=== PATIENT | female | born 1945 | race Caucasian/White ===

== ENCOUNTER 2018-11-05 09:36 | Inpatient (IN) | payer MEDICARE, OTHER, SELFPAY ==
[2018-10-22 08:40] VITALS: BMI 19.1
[2018-11-05] VITALS (20 sets, daily range): BP systolic 94–137; BP diastolic 35–90; PULSE 66–77; RESP 10–17; TEMP 35.9–37.1; O2SAT 92–99; BMI 17.6
--- NOTE | 2018-11-05 | DI.RAD.S_ITS ---
PROCEDURE: XR CERVICAL SPINE 2V OR 3V INDICATIONS: ACDF TECHNIQUE: 2 view(s) of the cervical spine were acquired. COMPARISON: None. FINDINGS: 2 spot fluoroscopic intraoperative images demonstrating C4-C7 ACDF with interbody cage grafts. There is expected intraoperative alignment. Hardware appears intact. Dictated by: Manuel Baird M.D. on 11/05/2018 at 16:33 Approved by: Manuel Baird M.D. on 11/05/2018 at 16:34
--- NOTE | 2018-11-05 12:36 | PM.PREOP ---
Pre-operative Note Interval Note History & Physical reviewed/Exam performed by Physician: Yes Changes to H&P: No
[2018-11-05] MEDS: CEFAZOLIN 1 GM VIAL IV (13:26)
--- NOTE | 2018-11-05 14:26 | SUR.OPER ---
Supine, head on gel donut. Arms padded with gel pads, tucked at sides, towel roll under shoulders. Safety belt at thigh. Legs uncrossed.
[2018-11-05] MEDS: LACTATED RINGERS 1,000 ML 42 ML IV ×2 (14:45→16:40)
--- NOTE | 2018-11-05 16:26 | P.OP_ITS ---
Operative Date/Time/Diagnoses Date of procedure: 11/05/18 Time of procedure: 12:20 Pre-op diagnosis: 1. C4-5, C5-6, C6-7 spinal stenosis 2. C4-5, C5-6, C6-7 spondylosis with radiculopathy Post-op diagnosis: same Procedure & Clinicians Procedure: 1. C4-5 C5-6 C6-7 anterior cervical diskectomy and fusion 2. C4-5 C5-6 C6-7 anterior interbody cage placement 3. C4-5 C5-6 C6-7 anterior instrumentation with plate and screw placement in C4-C5-C6 and C7 vertebrae 4. Utilization of microsurgical technique and operating microscope Same procedure as scheduled: Yes Indications: Patient has been having chronic neck pain and worsening cervical radiculopathy. Patient failed multiple conservative management with worsening pain weakness and numbness in her upper extremity. Patient has been having difficulty performing activity of daily living. After discussing risks benefits of treatment options, patient elected proceed with surgery. Surgeon: Frantz Pang [employer] Set Up Technician: Flory Corey'Brien Click Yes if Unassisted: No Anesthesia Type: General Operative Notes Closure Type: primary Specimen(s): none sent Prosthetic devices, grafts, tissues, transplants, or devices: Globus extend plate, PEEK cages Applied: catheter and drain(s) (Flat MADDIE drain) Estimated Blood Loss (mL): 50 Blood products transfused: none Procedure in detail: Patient was seen in the preoperative area. Risks and benefits of the surgery was discussed with the patient. Operative consent was obtained and placed in the chart. Patient was then taken to the operative room. Prophylactic antibiotic was given less than 0.5 hr prior to skin incision. General anesthesia was administered. Patient was placed into a supine position on her radiolucent table. Bilateral shoulders were taped down to allow proper C- arm imaging. Anterior cervical area was prepped and draped in a sterile fashion. Time-out was performed at this time. Using lateral C-arm imaging, the level between C4 and C7 was identified and marked on patient's neck. A oblique incision from midline towards medial border of sternocleidomastoid muscle was made. The platysma muscle was incised in line with skin incision. Metzenbaum scissor was used to develop the plane between the medial border of sternocleidomastoid d and the strap muscles medially. The carotid sheath and its contents were identified and protected behind the hand- held retractor during the entire case. The plane between the carotid sheath and strap muscles was developed with Metzenbaum scissors. Dissection was made down to the level of the anterior cervical fascia. Longus colli muscle was incised on the anterior aspect of vertebral bodies bilaterally from C4-C7. Spinal needle was placed into the C4-5 disc space and confirmed with lateral C-arm imaging. Using microsurgical technique and operative microscope, anterior cervical diskectomy was performed at C4-5 C5-6 and C6-7 level. This was done by removing the disc material, removing the anterior and posterior osteophytes posterior longitudinal ligaments along with performing bilateral foraminotomies at all 3 levels. Patient was found to have severe central and foraminal stenosis at all 3 levels. Patient's stenosis was fully decompressed after decompression was completed. After the diskectomy was completed, 3 anterior interbody cages were obtained. The cages were packed with globus via cell bone grafting material. One cage each along with the bone grafting material was then packed into the interbody spaces from C4-C7 with one cage into each interbody level. After the cages were placed, the anterior cervical plate was stabilized to the C4-C7 vertebrae using 2 screws at each each level. Total 8 screws were placed. After confirming placement of the hardware with AP and lateral C-arm imaging, the screws were locked into the plate using the locking mechanism and torque limiting screwdriver. After the hardware was placed and confirmed with AP and lateral C-arm imaging, the wound was irrigated with sterile normal saline. After the hardware was placed and confirmed with AP and lateral C-arm imaging, the retractor was removed and the wound was inspected. There is a small venous bleeder adjacent to the internal jugular vein as one of its tributaries avulsed during the process of retraction. After cauterizing using the bipolar there was still small amount of venous bleeding. Small vascular clips was used to clip the small venous bleeder and the bleeding stopped completely at this location. The wound was inspected. No other in bleeder was identified. A flat MADDIE drain was placed deep to the platysma muscle. The drain was secured to the skin using 3 nylon suture. The platysma muscle and the subcutaneous tissue was closed with 2-0 Vicryl. The skin was closed with 4-0 Monocryl and Steri-Strips. Patient tolerated the procedure well. Patient was transferred recovery room in stable condition. There were no complications. Complications: none Condition: stable Disposition: PACU Plan for aftercare: Admit to inpatient hospital
[2018-11-05] MEDS: fentaNYL 100 MCG/2 ML INJ 50 MCG IV ×4 (16:40→17:18)
--- NOTE | 2018-11-05 16:54 | SUR.PHASEI ---
assumed care of pt at this time. pt sitting up in bed, alert and response to rn. Drsg to neck observed to be c/d/i. Drain in place and draining red blood. soft collar in place.
[2018-11-05] MEDS: HYDROMORPHONE 2 MG INJ 0.25 MG IV ×8 (16:56→17:36)
[2018-11-05] MEDS: LORazepam 2 MG/ML SYRINGE 0.5 MG IV (17:14)
--- NOTE | 2018-11-05 17:14 | SUR.PHASEI ---
Report given to Sherine Simon RN at this time. Pt resting in bed with eyes closed, easily arousable to voice when spoken to. pt vss.
--- NOTE | 2018-11-05 17:15 | SUR.PHASEI ---
transferred care of pt to Sherine Simno RN at this time.
--- NOTE | 2018-11-05 17:44 | SUR.PHASEI ---
attempting to call report to the floor but they are unable to take a patient because of an ER admit. Will await thier call.
[2018-11-05] MEDS: SODIUM CHLORIDE 0.9% 1,000 ML 100 ML IV (18:48)
--- NOTE | 2018-11-05 18:54 | PC.NURSE ---
1805 - Patient brought up from PACU in bed by nursing staff. Patient sleepy, but awakens easily when spoken to. Able to move all extremities. Dressing to neck C/D/I and MADDIE in place draining sanguinous fluid. Oriented to room and call light, call light within reach. Bed alarm on.
[2018-11-05] MEDS: OXYCODONE IR 5 MG TABLET 10 MG PO ×2 (20:15→23:37)
[2018-11-05] MEDS: SIMVASTATIN 20 MG TABLET PO (20:16)
[2018-11-05] MEDS: GABAPENTIN 300 MG CAPSULE PO (20:16)
[2018-11-05] MEDS: CEFAZOLIN 1 GM/50 ML FROZ.PIGGY IV (20:16)
[2018-11-05] MEDS: SENNOSIDES 8.6 MG TABLET 17.2 MG PO (20:16)
[2018-11-05] MEDS: DOCUSATE 100 MG CAPSULE PO (20:16)
[2018-11-06] VITALS (7 sets, daily range): BP systolic 116–162; BP diastolic 57–83; PULSE 66–89; RESP 16–20; TEMP 36.6–38.4; O2SAT 92–99
[2018-11-06] MEDS: OXYCODONE IR 5 MG TABLET 10 MG PO ×2 (02:39→05:37)
[2018-11-06] MEDS: CEFAZOLIN 1 GM/50 ML FROZ.PIGGY IV (04:29)
[2018-11-06] MEDS: LEVOTHYROXINE 100 MCG TABLET 200 MCG PO (05:38)
[2018-11-06] MEDS: LEVOTHYROXINE 25 MCG TABLET PO (05:39)
[2018-11-06] MEDS: SODIUM CHLORIDE 0.9% 1,000 ML 100 ML IV (05:39)
[2018-11-06 06:20] LABS: Hematocrit 34.5 % (36-46); Hemoglobin 11.6 g/dL (12.0-16.0)
[2018-11-06] MEDS: HYDROMORPHONE 0.5 MG INJ IV (08:19)
--- NOTE | 2018-11-06 09:36 | PM.PNPO.1 ---
Subjective Date Patient Seen: 11/06/18 Time Patient Seen: 09:36 Interval history: Patient is 73 year old female who is POD#1 s/p C4-5 C5-6 C6-7 anterior cervical diskectomy and fusion with Dr. Pang. She has had issues with pain control and currently is complaining of headache, pain in the posterior neck that radiates to bilateral arms, and incisional pain. Pain is in the same distribution as preop. Some sore throat, she has been tolerating liquids and soft foods. She has not yet mobilized with PT. Denies any changes in sensation. No chest pain or shortness of breath. Exam Vital Signs (past 8 hours): - 11/06/18 05:59 11/06/18 08:00 Temperature 97.8 F 98.4 F Pulse Rate 70 66 Respiratory Rate 16 20 Blood Pressure 162/71 H 160/74 H Pulse Oximetry 99 99 Oxygen Delivery Method Room Air Oxygen Flow Rate 0 Narrative Exam Narrative: Patient resting in bed with moderate discomfort, in no acute distress. Alert and oriented. Dressing in place is clean, dry and intact. MADDIE drain in place reading 25cc. Sensation intact in distal extremity. Travel Rn Or strength is 5/5 and equal. 2+ radial pulses. Calves are soft and compressible bilaterally. Objective Labs Result Diagrams: 11/06/18 05:49 Labs: Laboratory Results - last 24 hr 11/06/18 05:49 Hgb 11.6 L Hct 34.5 L Assessment & Plan Post-op Postoperative Procedures Operation Date: 11/05/18 12:15 Actual Procedures Side Surgeon p C4-5,C5-6,C6-7 ACDF w/Anterior Instru. Frantz Pang MD Medications adjusted today for pain control. Discontinue IV Dilaudid and oxycodone as it is not providing adequate relief and transition to oral Dilaudid for severe pain. Continue Vistaril, Tylenol and Gabapentin. Mobilize with PT. Possible discharge to home tomorrow pending better pain control.
--- NOTE | 2018-11-06 09:43 | P.PN_ITS ---
Subjective Date Patient Seen: 11/06/18 Time Patient Seen: 09:36 Interval history: Patient is 73 year old female who is POD#1 s/p C4-5 C5-6 C6-7 anterior cervical diskectomy and fusion with Dr. Pang. She has had issues with pain control and currently is complaining of headache, pain in the posterior neck that radiates to bilateral arms, and incisional pain. Pain is in the same distribution as preop. Some sore throat, she has been tolerating liquids and soft foods. She has not yet mobilized with PT. Denies any changes in sensation. No chest pain or shortness of breath. Exam Vital Signs (past 8 hours): - 11/06/18 05:59 11/06/18 08:00 Temperature 97.8 F 98.4 F Pulse Rate 70 66 Respiratory Rate 16 20 Blood Pressure 162/71 H 160/74 H Pulse Oximetry 99 99 Oxygen Delivery Method Room Air Oxygen Flow Rate 0 Narrative Exam Narrative: Patient resting in bed with moderate discomfort, in no acute dis tress. Alert and oriented. Dressing in place is clean, dry and intact. MADDIE drain in place reading 25cc. Sensation intact in distal extremity. Three Dimensional Map Modeler strength is 5/5 and equal. 2+ radial pulses. Calves are soft and compressible bilaterally. Objective Labs Result Diagrams: 11/06/18 05:49 Labs: Laboratory Results - last 24 hr 11/06/18 05:49 Hgb 11.6 L Hct 34.5 L Assessment & Plan Post-op Postoperative Procedures Operation Date: 11/05/18 12:15 Actual Procedures Side Surgeon p C4-5,C5-6,C6-7 ACDF w/Anterior Instru. Frantz Pang MD Medications adjusted today for pain control. Discontinue IV Dilaudid and oxycodone as it is not providing adequate relief and transition to oral Dilaudid for severe pain. Continue Vistaril, Tylenol and Gabapentin. Mobilize with PT. Possible discharge to home tomorrow pending better pain control.
[2018-11-06] MEDS: HYDROMORPHONE 2 MG TABLET PO (09:56)
[2018-11-06] MEDS: MULTIVITAMIN 1 TABLET 1 TAB PO (09:57)
[2018-11-06] MEDS: hydrOXYzine pamoate 25 MG CAPSULE PO ×3 (09:57→21:53)
[2018-11-06] MEDS: DOCUSATE 100 MG CAPSULE PO ×2 (09:57→21:53)
[2018-11-06] MEDS: GABAPENTIN 300 MG CAPSULE PO ×2 (09:57→21:53)
[2018-11-06] MEDS: SERTRALINE 50 MG TABLET 100 MG PO (09:57)
--- NOTE | 2018-11-06 11:17 | ST.IPSCREEN ---
Pt seen for voice and swallowing screening following ACDF surgery. Pt reported mild hoarseness and good swallowing. No obvious cough/ choke observed with water via straw. pt reported that she ate her breakfast without difficulty. Literature provided to pt re voice/swallow following ACDF. non-billable visit
--- NOTE | 2018-11-06 11:17 | CM.DANOTE ---
DCP/Assessment: Reviewed chart. Patient is a 73yr old female admitted to [facility] for spine surgery performed by Dr. Pang on 11-05-18. Primary payor is 1)Medicare 2)[email or web address]. PCP is Joanne Cho in [facility] Met with patient explained CM/SW role. Patient alert and oriented, sitting in recliner at time of visit. Patient reports that she hopes to go home when medically stable. Patient reports that she has been in a lot of pain today. At this time d/c date unknown. Patient being followed by therapy. Patient reports having 15 [address] residence. Patient plans to borrow FWW at [facility] in [place]. Patient does not anticipate any d/c planing needs. P: Home when stable. Patient reports having family support. LINDSEY Mejia Discharge Planning/Care Management CM Discharge Assessment Start: 11/06/18 11:14 Freq: Status: Active Protocol: Document 11/06/18 11:14 KJS (Rec: 11/06/18 11:17 KJS [id number]) Discharge Planning Assessment Assigned Triple Air Valve Tester LINDSEY Mejia Contact Information Chalo Brown (spouse) Advance Directives? Yes: Unsure of whereabouts Advance Directives on File No History Provided By Patient Medical Record Prior Living Arrangements House Household Members spouse Type of transporation used prior to Drives own vehicle admit Independent with ADL's Yes Is patient alert and oriented? Yes Caregiver for Another No DME Already Rented / Owned FWW / Walker Comment Patient intends on borrowing FWW from [facility] in [place]. Barriers to Discharge No Discharge Plan Home Transportation Arrangement Family to provide transport Referrals Initiated None needed Whiteboard Updated in Patient Room with Yes name and ext. # of Triple Air Valve Tester Review Status In Process Next Review Type Continued Stay Review Pre-Anesthesia Assessment Start: 10/22/18 08:40 Freq: Status: Complete Protocol: Document 10/22/18 08:40 CAB (Rec: 10/22/18 09:24 CAB [id number]) Pre-Anesthesia Assessment Patient Also Known As Sommer (AKA) Patient Information Reviewed Via Phone Assessment Assessment Completed With Patient Diagnostic Results BMP/CMP CBC EKG Comment Outside labs/ECG scanned in Primary Care Provider Joanne Kay Seen Specialist in Last 12 Months Yes Specialist Seen Orthopedist Primary Language Azerbaijani Watermaster Required No Height 165.1 cm Weight 52.163 kg Body Mass Index (BMI) 19.1 Hearing Ability Normal Visual Assist Glasses Dentition Type Teeth, Natural Present Teeth, Missing Barriers to Learning None Hx Anesthesia Reactions No Hx Family Anesthesia Reaction No Hx Malignant Hyperthermia No Hx Blood Transfusions No Anesthesia Review Requested No Foreclosure Home Inspector No alcohol intake current alcohol intake frequency 0-2 drinks per day Smoking Status Current every day smoker Tobacco type cigarettes Smoking packs per day 1 Substance Use Type does not use Pain Present Pain Reported Musculoskeletal Symptoms Back Pain Limited Range of Motion Neck Pain Radiating Pain into Limb History of Falling (Recent or History of No ) Patient is completely paralyzed or No completely immobile Mental Status Oriented to own ability Is patient on oxygen? No Does patient have RODRIGUEZ/SOB No Hx Sleep Apnea No Currently Taking a Beta Juanjose No Can You Climb a Flight of Stairs Without Yes SOB Hx Chest Pain No Hx SOB No Hx Syncope or Dizziness No Anti-Coagulant Therapy No Has a Environmental Sustainability Manager No Cardiac Testing No Hx Pacemaker/ICD No Pacemaker Rep Required? No Cardiac Clearance Received Not Applicable Diet Type At Home Regular dysphagia No Urinary Catheter Present No Hx Urinary Self Catheterization No Diabetes No Patient No Lactating No Hx Drug Resistant Organism No Presence of External or Internal Medical No Devices Have you traveled outside the [facility] States in the last 30 days? Marital Status Lives With spouse Prior Living Arrangements House Number of Floors (Floors) Two Floors Support System Child/Children Spouse Does the Patient Have Assistance After Yes Surgery Patient Discharge Plan Description Return Home Comment Pt advised overnight length of stay per surgeon's office Feels Safe in Current Environment Yes Been Physically Hurt or Threatened By a No Person in Current Environment Do you have thoughts of harming yourself None or others? Are you currently considering suicide? No Do you have a plan to hurt yourself or No Plan others? Do You Have Any Spiritual Beliefs That No May Affect Your HC Choices? Do You Have Any Cultural Practices That No May Affect Your HC Choices? Spiritual Referral None Comment Worship Who Can We Speak to About Patient's Care Family, friends Identifying Code for Release of Patient Declines to issue Information Health Care Proxy/Next of Kin Chalo () Health Care Proxy Emergency Contact Name Mary (daughter) Emergency Contact Advance Directives? Yes: Unsure of whereabouts Advance Directives on File No Power of Flight Nurse No PAC Instructions Medications to take/avoid Nasal antibiotic No ETOH/petroleum product on skin DOS NPO Post-op transportation Pre-surgical wash Sensory aids Sturdy shoes/comfortable clothes Do not bring valuables and remove jewelry
--- NOTE | 2018-11-06 11:27 | PT.IIE ---
Current Diagnoses Other spondylosis with radiculopathy, cervical region (11/05/18) Spinal stenosis, cervical region (11/05/18) Surgery Performed Operation Date: 11/05/18 12:15 Actual Procedures p C4-5,C5-6,C6-7 ACDF w/Anterior Instru. - Frantz Pang MD Medical History (Last Updated 10/22/18 @ 09:15 by Yvonne Tovar RN) Allergic rhinitis (Acute) Cervical spinal stenosis (Acute) Depression (Acute) H/O: hysterectomy (Acute) HLD (hyperlipidemia) (Acute) Hypothyroid (Acute) Osteoarthritis (Acute) Osteopenia (Acute) Raynaud's disease (Acute) Seizures (Acute) Physical Therapy Inpatient Evaluation/Re-Eval M1 PT/OT-IP Prior Functional Status Start: 11/06/18 10:59 Freq: NEEDED Status: Active Protocol: Document 11/06/18 09:10 (Rec: 11/06/18 11:27 [email or web address]) Medical Review Prior Functional Status Medical History Reviewed Yes Diet/Fluid Consistency Regular Communication No deficits noted. Able to make needs knwon Mobility and Gait Pt is independent for overall mobility at home and community . But she does have difficulty bending over, lifting objects due to pain. Activities of Daily Living and IADL's Independent for ADLs and IADLs . Pt had difficult time making bed, laundry due to pain. Pt also drives Social History Household Members spouse Living Arrangements House Number of Floors (Floors) Two Floors Number of Stairs To Enter/Railing? 3 VANDANA to front with wide rails 1 step from garage to back door 14 steps to second floor with landing in between, B rails Home Environment Standard Height Toilet Walk in Shower Home Equipment Straight Cane Hand Held Shower Employment Status Retired Additional Social History Comment Pt lives with her who has a bad back and knees and use SPC for mobility. Pt's BR on 2 nd floor and would like to cont to keep it that way since she doesnt want to sleep on the couch downstairs. M2 PT-IP Current Condition Start: 11/06/18 10:59 Freq: NEEDED Status: Active Protocol: Document 11/06/18 09:10 (Rec: 11/06/18 11:27 [email or web address]) Physical Therapy Current Condition Current Condition Evaluation Date 11/06/18 Treatment Diagnosis C4-C7 fusion, ant diskectomy, impaired gait and activity tolerance Onset Date 11/05/18 Precautions Cervical Spine Precautions Soft Collar for Comfort Rigid Collar No Heavy Lifting Log Roll Weight Bearing Status Weight Bearing Status Weight Bear as Tolerated M3 PT-IP Subjective Start: 11/06/18 10:59 Freq: NEEDED Status: Active Protocol: Document 11/06/18 09:10 (Rec: 11/06/18 11:27 [email or web address]) Subjective Physical Therapy Visit Type Type Initial Evaluation Visit Start Time 09:10 Visit Stop Time 09:40 Total Visit Minutes 30 Notes Co-tx with OT. BP before mobility: 160/76, pt states she is nervous. Number of STAFF PHYSICIAN Visits 0 Physical Therapy Visit Comments Patient Comments I feel kind of nervous and weak Patient Goals To return home with her Therapy Pain Assessment Pain When Pain Assessed At Rest Pain Present Pain Present Pain Reported Location Posterior Neck Intensity 3 Scale Used Numeric (1 - 10) Description Acute Pain Management Techniques Modification of Treatment Timing of Activity with Medications M4 PT-IP Mobility and Gait Start: 11/06/18 10:59 Freq: NEEDED Status: Active Protocol: Document 11/06/18 09:10 (Rec: 11/06/18 11:27 [email or web address]) PT-Bed Mobility Assessment Rolling Type of Rolling Log Rolling Roll to Right Level of Assist Contact Guard Assistance Supine to Sit Supine to Sit Contact Guard Assistance Scooting Scooting to Edge of Bed Contact Guard Assistance PT-Transfer Assessment Sit to and From Stand Sit to and from Stand Contact Guard Assistance Use of Upper Extremities Equipment Transfer Assistive Device Gait Belt Front Wheeled Walker Orthotic/Prosthetic Devices or Brace: Yes Transfers Transfer Destination Bed Chair Transfer Technique Stand Pivot Transfer Ability Level of Assist Contact Guard Assistance Comments Mobility Comments Pt able to log roll and and sit up on R EOB. STS from EOB with FWW CGA. Pt was slightly unsteady excessive sway. She mostly hold on to counter for self care. She understands her post op precautions and able to maintain them by using hip hinge pattern for transfers. Pt also showed increased time for turns with shuffling steps . Gait Assessment Gait Gait Assistance Required: Contact Guard Assist Distance (Feet) 70 Able to Maintain Weight Bearing Status Yes During Gait Assistive Devices Assistive Device None Gait Belt Front Wheeled Walker Orthotic/Prosthetic Devices or Brace: Yes Gait Deviations General Gait Pattern Ataxic Decreased Stride Length Decreased Feet Clearance Narrow Based Gait Factors Limiting Gait Function Factors Limiting Gait Function Abnormal Tonal Influences Decreased Activity Tolerance Decreased Sensation Decreased Strength Limited Range of Motion Pain Poor Balance Comments Gait Comments Pt amb from EOB to sink counter, then to hallway and returned back to chair with CGA and FWW. Attempted to amb without FWW for 10 feet but appeared unsteady with uneven steps. Pt states she feels wobbly and weak without FWW. Pt also took longer time for turns with shuffling steps. Stair Climbing Assessment Comments Stair Climbing Comments did not attempt due to fatigue PT-Balance Assessment Sitting Balance and Reactions Static Sitting Balance Ability Normal Dynamic Sitting Balance Ability Normal Standing Balance and Reactions Static Standing Balance Ability Good Dynamic Standing Balance Ability Good Device Used FWW M5 PT-IP Objective Assessments Start: 11/06/18 10:59 Freq: NEEDED Status: Active Protocol: Document 11/06/18 09:10 (Rec: 11/06/18 11:27 [email or web address]) Orientation Orientation/Cognition Level of Alertness Alert Orientation Name Age Birthday Month Date Year Day of Week Place Situation Language Function Ability No Deficits Noted Safety Awareness Understands Safety Issues Memory Description No Deficits Noted Gross Range of Motion Upper Extremity ROM Assessment Within Functional Limits Lower Extremity ROM Assessment Within Functional Limits Strength Upper Extremity Strength Assessment Bilaterally Impaired Shoulder 3+ Elbow 3+ Wrist 3+ Hand 3+ Lower Extremity Strength Assessment Bilaterally Impaired Hip 4 Knee 4 Ankle 4 Comments Strength Comments Pt overall appears a bit fragile with limited UE strength but she states she feels normal. Coordination Assessment Gross Coordination Gross Coordination WNL Assessment Finger to Nose Test Normal Performance Pronation/Supination Test Normal Performance Sensation Assessment Sensation Gross Sensation Right UE Impaired Left UE Impaired Light Touch Impaired Proprioception (Position) Impaired Sensation Description Numbness Comments Sensation Comments c/o numbness/ decreased sensitivity with touch on dorsal aspect of forearms. Muscle Tone Muscle Tone WNL Yes M6 PT-IP Treatment Start: 11/06/18 10:59 Freq: NEEDED Status: Active Protocol: Document 11/06/18 09:10 (Rec: 11/06/18 11:27 [email or web address]) Physical Therapy Treatment Education Education Provided Precautions Weight Bearing Status Post-Op Packet Safety M7 PT-IP Assessment and Plan Start: 11/06/18 10:59 Freq: NEEDED Status: Active Protocol: Document 11/06/18 09:10 (Rec: 11/06/18 11:27 [email or web address]) PT Summary Assessment and Plan Potential Rehabilitation Potential Good Status of Condition at Evaluation Stable Summary Impairments Pain ROM Strength Balance Bed Mobility Transfers Gait Activity Tolerance Assessment Summary Pt is low complexity who is POD #2 s/p C4-5 C5-6 C6-7 anterior cervical diskectomy and fusion. Pt appears weak and fragile upon assessment, with relatively high BP 160/76 before mobility. Pt did state she was quite nervous since the surgery. Pt c/o numbness/ decreased sensitivity with touch on dorsal aspect of forearms, but overall WFL ROM. Pt also showed decreased balance and required to use FWW for mobility. This might due to medication and a day of being bed bound. However, pt' s BP reached 130/67 after mobility and she feels good afterwards. Pt currently is not safe to go home yet, especially she has 14 steps to access her bedroom. But she will return to home with assistance most likely depends on her progress. Home health might be an option as well to improve her overall mobility. Goals Bed Mobility Goal Independent Transfer Goal Independent Cane Front Wheeled Walker Gait Goal Independent Cane Front Wheel Walker Gait Distance 200 Other Goals climb 15 steps with B rails Days to Meet Goals 5 Frequency of Treatment Frequency Of Treatment Twice a Day Treatment Plan Physical Therapy Treatment Plan Bed Mobility Training Transfer Training Gait Training Therapeutic Exercise Balance Retraining Post Op Education Discharge Planning Hot or Cold Pack Other Recommendations and Next Treatment log roll, bed mob, transfer Focus and gait training as carina with LRAD stair climbing as carina Recommendations To Nursing Amount of Assist Needed 1 Person Assist Discharge Recommendations PT Discharge Recommendations Home with Assistance Home Health Other Discharge Recommendations Pt currently is not safe to go home yet, especially she has 14 steps to access her bedroom . But she will return to home with assistance most likely depends on her progress . Home health might be an option as well to improve her overall mobility.
--- NOTE | 2018-11-06 12:58 | OT.IP.EVAL ---
Current Diagnoses Other spondylosis with radiculopathy, cervical region (11/05/18) Spinal stenosis, cervical region (11/05/18) Surgery Performed Operation Date: 11/05/18 12:15 Actual Procedures p C4-5,C5-6,C6-7 ACDF w/Anterior Instru. - Frantz Pang MD Past Medical History (Last Updated 10/22/18 @ 09:15 by Yvonne Tovar RN) Allergic rhinitis (Acute) Cervical spinal stenosis (Acute) Depression (Acute) H/O: hysterectomy (Acute) HLD (hyperlipidemia) (Acute) Hypothyroid (Acute) Osteoarthritis (Acute) Osteopenia (Acute) Raynaud's disease (Acute) Seizures (Acute) Occupational Therapy Inpatient Evaluation/Re-Eval M1 PT/OT-IP Prior Functional Status Start: 11/06/18 11:58 Freq: NEEDED Status: Active Protocol: Document 11/06/18 08:35 [facility] (Rec: 11/06/18 12:58 [facility] [email or web address]) Medical Review Prior Functional Status Medical History Reviewed Yes Diet/Fluid Consistency Regular Communication No deficits noted. Able to make needs known. Mobility and Gait Pt is independent for overall mobility at home and community . But she does have difficulty bending over, lifting objects due to pain. Activities of Daily Living and IADL's Independent for ADLs and IADLs . Pt had difficult time making bed, laundry due to pain. Pt also drives Social History Household Members spouse Living Arrangements House Number of Floors (Floors) Two Floors Number of Stairs To Enter/Railing? 3 VANDANA to front with wide rails 1 step from garage to back door 14 steps to second floor with landing in between, B rails Home Environment Standard Height Toilet Walk in Shower Home Equipment Straight Cane Hand Held Shower Employment Status Retired Additional Social History Comment Pt lives with her who has a bad back and knees and use SPC for mobility. Pt's BR on 2 nd floor and would like to cont to keep it that way since she doesnt want to sleep on the couch downstairs. in addition, pt states that unable to lift or provide physical assist. M2 OT-IP Current Condition Start: 11/06/18 11:58 Freq: Status: Active Protocol: Document 11/06/18 08:35 [facility] (Rec: 11/06/18 12:58 [facility] [email or web address]) Occupational Therapy Current Condition Current Condition Evaluation Date 11/06/18 Treatment Diagnosis Cervical Stenosis Diagnosis Onset Date 11/05/18 Post Operative Precautions Cervical Spine Precautions Soft Collar for Comfort No Heavy Lifting Log Roll M3 OT- IP Subjective and Pain Start: 11/06/18 11:58 Freq: Status: Active Protocol: Document 11/06/18 08:35 [facility] (Rec: 11/06/18 12:58 [facility] [email or web address]) OT- Subjective Occupational Therapy Visit Type Type Initial Evaluation Visit Start Time 08:35 Visit Stop Time 08:50 Notes Also seen from 915 to 945 for mobility needs with PT. Occupational Therapy Visit Comments Patient Comments Pt agreeable to get up after breakfast. Patient/Caregiver Goals To go home. OT Pain Assessment Pain When Pain Assessed At Rest Pain Present Pain Present Pain Reported Location Posterior Neck Intensity 5 Scale Used Numeric (1 - 10) M4 OT- IP ADL's Start: 11/06/18 11:58 Freq: Status: Active Protocol: Document 11/06/18 08:35 [facility] (Rec: 11/06/18 12:58 [facility] [email or web address]) OT LAC-Cged-Sozpgiy General Evaluation Self-Feeding Ability Independent Comments OT Self-Feeding Comments Educated pt to eat softer food , take smaller bites and sips, and be sure to sit upright at 90 degrees. OT ADL-Grooming General Evaluation Grooming Ability Standby Assistance Areas Needing Assistance Retrieving/Set-up of Grooming Items Comments OT Grooming Comments Pt able to stand with FWW in order to do grooming needs. Cues to bend at hips or spit into a cup. OT ADL-Oral Care General Eval Oral Care Ability Independent OT ADL-Dressing General Eval Lower Body Dressing Ability Standby Assistance Comments OT Dressing Comments Pt ableto lauren socks while bringing up feet in bed. Pt staets has slip on shoes at home. OT ADL-Toileting Comments OT Toileting Comments Pt still has a catheter in. M5 OT- IP IADL's Start: 11/06/18 11:58 Freq: Status: Active Protocol: Document 11/06/18 08:35 [facility] (Rec: 11/06/18 12:58 [facility] [email or web address]) OT-Instrumental Activities of Daily Living Meal Preparation Meal Preparation Comments to provide assist. Tool Trouble Shooter Tool Trouble Shooter Comments to provide assist. M6 OT- IP Functional Cognition Start: 11/06/18 11:58 Freq: Status: Active Protocol: Document 11/06/18 08:35 [facility] (Rec: 11/06/18 12:58 [facility] [email or web address]) Cognitive Factors Limiting Selfcare Function Cognitive Ability Level of Alertness Alert Patient Orientation Name Place Situation Attention Span Ability Capable of Focused Attention Capable of Sustained Attention Ability to Follow Commands Able to Follow Multi-Step Commands Memory Description No Deficits Noted Safety Awareness No Deficits Noted Cognitive Comments Cognitive Assessment Comments Pt's cognition appears intact at this time. OT- Vision and Hearing OT- Hearing Assessment OT- Hearing Assessment WFL M7 OT- IP Mobility and Balance Start: 11/06/18 11:58 Freq: Status: Active Protocol: Document 11/06/18 08:35 [facility] (Rec: 11/06/18 12:58 [facility] [email or web address]) OT- Bed Mobility Assessment Rolling Type of Rolling Roll to Right Supine to Sit Supine to Sit Assist Standby Assistance Scooting Scooting to Edge of Bed Standby Assistance OT-Transfer Assessment Sit to and From Stand Sit to and from Stand Contact Guard Assistance Transfers Transfer Ability Contact Guard Assistance 1 Person Assistance Technique Transfer Destination Bed Chair Transfer Technique Stand Step Pivot Devices Transfer Assistive Devices None Gait Belt Front Wheeled Walker Comments Mobility Comments At this time pt is more steady with use of FWW and CGA. Recommended pt may need FWW, PT to help pt determine . OT- Balance Assessment Sitting Balance and Reactions Static Sitting Balance Ability Normal Dynamic Sitting Balance Ability Good Standing Balance and Reactions Static Standing Balance Ability Good M8 OT- IP Objective Assessments Start: 11/06/18 11:58 Freq: Status: Active Protocol: Document 11/06/18 08:35 [facility] (Rec: 11/06/18 12:58 [facility] [email or web address]) OT Gross Range of Motion Upper Extremity Range of Motion Assessment Within Functional Limits OT Strength Comments Strength Comments BUE 3+/5 OT Sensation Assessment Comments Summary Comments Decreased sensation in forearms. M9 OT- IP Assessment and Plan Start: 11/06/18 11:58 Freq: Status: Active Protocol: Document 11/06/18 08:35 [facility] (Rec: 11/06/18 12:58 [facility] [email or web address]) OT Summary Assessment and Plan Potential Rehabilitation Potential Good Analytic Complexity at Evaluation Low Summary OT Impairments Pain Functional Mobility Dressing Toileting Bathing Toilet Transfers Shower Transfers Progress Towards Goals Slow Progress due to Pain Slow Progress due to Activity Tolerance Assessment Summary Pt low complexity and main barriers prior to going home are steps, pain , and now needing FWW for mobility. Pending pt's progress and family training home with assist. Goals Grooming Goal Independent Dressing Goal Independent Toileting Goal Independent Bathing Goal Standby Assistance Toilet Transfer Goal Independent Shower Transfer Goal Standby Assistance Patient/Caregiver Education Goal Caregiver Independent Assisting Patient Days to Meet Goals 3 Frequency of Treatment Frequency Of Treatment Once a Day Treatment Plan OT Treatment Plan ADL Training Functional Mobility Patient/Family Education Discharge Planning Other Treatment Recommendations and Next Shower, caregiver training Treatment Focus Discharge Recommendations OT Discharge Recommendations Home with Assistance Home Equipment Needs Shower chair, FWW
[2018-11-06] MEDS: HYDROMORPHONE 2 MG TABLET 4 MG PO ×3 (13:14→22:57)
--- NOTE | 2018-11-06 13:25 | PC.NURSE ---
Addendum entered by Marge Anderson R.N. 11/06/18 14:34: neck dressing removed for saturated bloody drainage on gauze. Old MADDIE site active drainage, pressure held for a dew minutes and gauze pressure dressing placed with Gauze and tegaderm prior to area being cleansed. Pt has had soft collar on all shift, no further skin issues. Dilaudid po prn effective, pain increased to 6-7/10 after PT session. Original Note: Day Shift- Dilaudid IV prn given at 0820 for 10/10 pain from neck radiating to a headache and to bilateral shoulders. Pt very teary and unable to get comfortable. Soft collar in place. Anterior neck dressing CDI with MADDIE in place on bulb suction with sang fluid. Spoke with RHIANNON Louise regarding pain regime not effective, orders changed from PRN Oxycodone to Dilaudid PO. Dilaudid 2mg pn prn given at 0955, pain increasing at 1200. With next dose will try 4mg, pt agreeable. Spoke with Dr. Pang at 1115, plan to remove MADDIE drain and call him back with update. Aware of pt spending one more night. Neck dressing removed as MADDIE under the same dressing. one suture removed. MADDIE removed without difficulty. Neck incision steri-strips CDI. Area cleansed with NS. Gauze and tegaderm dressing applied. Pt tolerated fair. Medial neck area puffy edema. Pt tolerating soft foods such as on a full liquid diet. Takes small pills whole with water without difficulty. Dr. Pang called at 1220 and given update regarding removal of MADDIE drain and neck swelling noted.
--- NOTE | 2018-11-06 14:29 | PT.IPTN ---
Current Diagnoses Other spondylosis with radiculopathy, cervical region (11/05/18) Spinal stenosis, cervical region (11/05/18) Surgery Performed Operation Date: 11/05/18 12:15 Actual Procedures p C4-5,C5-6,C6-7 ACDF w/Anterior Instru. - Frantz Pang MD Physical Therapy Treatment Note M2 PT-IP Current Condition Start: 11/06/18 10:59 Freq: NEEDED Status: Active Protocol: Document 11/06/18 09:10 (Rec: 11/06/18 11:27 [email or web address]) Physical Therapy Current Condition Current Condition Evaluation Date 11/06/18 Treatment Diagnosis C4-C7 fusion, ant diskectomy, impaired gait and activity tolerance Onset Date 11/05/18 Precautions Cervical Spine Precautions Soft Collar for Comfort Rigid Collar No Heavy Lifting Log Roll Weight Bearing Status Weight Bearing Status Weight Bear as Tolerated M3 PT-IP Subjective Start: 11/06/18 10:59 Freq: NEEDED Status: Active Protocol: Document 11/06/18 14:21 GGD (Rec: 11/06/18 14:29 GGD [id number]) Subjective Physical Therapy Visit Type Type Treatment Note Visit Start Time 13:55 Visit Stop Time 14:20 Total Visit Minutes 25 Number of RESIDENTIAL FINISH CARPENTER Visits 1 Physical Therapy Visit Comments Patient Comments Pt states she needs to use the bathroom. Therapy Pain Assessment Pain When Pain Assessed At Rest Pain Present Pain Present Pain Reported Location Posterior Neck Intensity 5 Scale Used Numeric (1 - 10) M4 PT-IP Mobility and Gait Start: 11/06/18 10:59 Freq: NEEDED Status: Active Protocol: Document 11/06/18 14:21 [email or web address] (Rec: 11/06/18 14:29 GGD [id number]) PT-Bed Mobility Assessment Rolling Type of Rolling Log Rolling Roll to Right Level of Assist Contact Guard Assistance Supine to Sit Supine to Sit Contact Guard Assistance Sit to Supine Sit to Supine Contact Guard Assistance Scooting Scooting to Edge of Bed Contact Guard Assistance PT-Transfer Assessment Sit to and From Stand Sit to and from Stand Contact Guard Assistance Use of Upper Extremities Equipment Transfer Assistive Device Gait Belt Front Wheeled Walker Orthotic/Prosthetic Devices or Brace: Yes Transfers Transfer Destination Bed Toilet Transfer Ability Level of Assist Contact Guard Assistance Gait Assessment Gait Gait Assistance Required: Contact Guard Assist Minimum Assistance 1 Person Assist Distance (Feet) 80 Able to Maintain Weight Bearing Status Yes During Gait Assistive Devices Assistive Device None Gait Belt Front Wheeled Walker Orthotic/Prosthetic Devices or Brace: Yes Gait Deviations General Gait Pattern Ataxic Decreased Stride Length Decreased Feet Clearance Narrow Based Gait Factors Limiting Gait Function Factors Limiting Gait Function Abnormal Tonal Influences Decreased Activity Tolerance Decreased Sensation Decreased Strength Limited Range of Motion Pain Poor Balance Comments Gait Comments Pt ambulated x 10 feet without AD with CGA and then 70 feet with FWW. Pt unsteady with gait without AD. M5 PT-IP Objective Assessments Start: 11/06/18 10:59 Freq: NEEDED Status: Active Protocol: Document 11/06/18 09:10 HH (Rec: 11/06/18 11:27 [email or web address]) Orientation Orientation/Cognition Level of Alertness Alert Orientation Name Age Birthday Month Date Year Day of Week Place Situation Language Function Ability No Deficits Noted Safety Awareness Understands Safety Issues Memory Description No Deficits Noted Gross Range of Motion Upper Extremity ROM Assessment Within Functional Limits Lower Extremity ROM Assessment Within Functional Limits Strength Upper Extremity Strength Assessment Bilaterally Impaired Shoulder 3+ Elbow 3+ Wrist 3+ Hand 3+ Lower Extremity Strength Assessment Bilaterally Impaired Hip 4 Knee 4 Ankle 4 Comments Strength Comments Pt overall appears a bit fragile with limited UE strength but she states she feels normal. Coordination Assessment Gross Coordination Gross Coordination WNL Assessment Finger to Nose Test Normal Performance Pronation/Supination Test Normal Performance Sensation Assessment Sensation Gross Sensation Right UE Impaired Left UE Impaired Light Touch Impaired Proprioception (Position) Impaired Sensation Description Numbness Comments Sensation Comments c/o numbness/ decreased sensitivity with touch on dorsal aspect of forearms. Muscle Tone Muscle Tone WNL Yes M6 PT-IP Treatment Start: 11/06/18 10:59 Freq: NEEDED Status: Active Protocol: Document 11/06/18 14:21 GGD (Rec: 11/06/18 14:29 GGD [id number]) Physical Therapy Treatment Education Education Provided Precautions Safety Brace Education Shravan Wheatley PT-IP Assessment and Plan Start: 11/06/18 10:59 Freq: NEEDED Status: Active Protocol: Document 11/06/18 14:21 GGD (Rec: 11/06/18 14:29 GGD [id number]) PT Summary Assessment and Plan Summary Assessment Summary Pt progressing slowly. She was able to progress gait distance. She had improved stability with gait with FWW. She need min A for sit to stand from lower toilet and CGA from bed. Pt needs to clear stair mobility before D/ C home. Frequency of Treatment Frequency Of Treatment Twice a Day Treatment Plan Physical Therapy Treatment Plan Bed Mobility Training Transfer Training Gait Training Therapeutic Exercise Balance Retraining Post Op Education Discharge Planning Hot or Cold Pack Other Recommendations and Next Treatment log roll, bed mob, transfer Focus and gait training as carina with LRAD stair climbing as carina Recommendations To Nursing Amount of Assist Needed 1 Person Assist Discharge Recommendations PT Discharge Recommendations Home with Assistance
[2018-11-06] MEDS: ACETAMINOPHEN 325 MG TABLET 650 MG PO ×2 (16:09→21:53)
[2018-11-06] MEDS: SIMVASTATIN 20 MG TABLET PO (21:53)
[2018-11-06] MEDS: CALCIUM CARB/VIT D3 500/200 TABLET 1 EACH PO (21:53)
[2018-11-06] MEDS: SENNOSIDES 8.6 MG TABLET 17.2 MG PO (21:53)
[2018-11-07] VITALS: BP 129/50; PULSE 91; RESP 16; TEMP 37.1; O2SAT 95
[2018-11-07] MEDS: HYDROMORPHONE 2 MG TABLET 4 MG PO ×2 (04:33→08:19)
[2018-11-07] MEDS: hydrOXYzine pamoate 25 MG CAPSULE PO (04:33)
[2018-11-07 04:45] VITALS: BP 154/70; PULSE 96; RESP 16; TEMP 37.7; O2SAT 96
[2018-11-07] MEDS: LEVOTHYROXINE 25 MCG TABLET PO (06:21)
[2018-11-07] MEDS: LEVOTHYROXINE 100 MCG TABLET 200 MCG PO (06:21)
[2018-11-07 07:22] VITALS: BP 157/74; PULSE 94; RESP 20; TEMP 36.9; O2SAT 96
[2018-11-07] MEDS: SERTRALINE 50 MG TABLET 100 MG PO (08:19)
[2018-11-07] MEDS: DOCUSATE 100 MG CAPSULE PO ×2 (08:19→20:03)
[2018-11-07] MEDS: GABAPENTIN 300 MG CAPSULE PO ×2 (08:19→20:03)
--- NOTE | 2018-11-07 09:14 | OT.IP.TRT ---
Current Diagnoses Other spondylosis with radiculopathy, cervical region (11/05/18) Spinal stenosis, cervical region (11/05/18) Surgery Performed Operation Date: 11/05/18 12:15 Actual Procedures p C4-5,C5-6,C6-7 ACDF w/Anterior Instru. - Frantz Pang MD Occupational Therapy Treatment Note M2 OT-IP Current Condition Start: 11/06/18 11:58 Freq: Status: Active Protocol: Document 11/06/18 08:35 [facility] (Rec: 11/06/18 12:58 [facility] [email or web address]) Occupational Therapy Current Condition Current Condition Evaluation Date 11/06/18 Treatment Diagnosis Cervical Stenosis Diagnosis Onset Date 11/05/18 Post Operative Precautions Cervical Spine Precautions Soft Collar for Comfort No Heavy Lifting Log Roll M3 OT- IP Subjective and Pain Start: 11/06/18 11:58 Freq: Status: Active Protocol: Document 11/07/18 09:01 [facility] (Rec: 11/07/18 09:14 [facility] [email or web address]) OT- Subjective Occupational Therapy Visit Type Type Treatment Note Visit Start Time 08:45 Visit Stop Time 09:00 Total Visit Minutes 15 Occupational Therapy Visit Comments Patient Comments Pt states still having some trouble swallowing even though eating softer foods, noticed that pt was coughing after drinking her water. Notifed nursing and both agreed to have MEAT PULLER screen. Able to see in notes that MEAT PULLER screened was done on 11/05 with no difficulties. scalloper MEAT PULLER to call nurse. Patient/Caregiver Goals Pt would like to go home. OT Pain Assessment Pain When Pain Assessed At Rest Pain Present Pain Present Pain Reported Location Posterior Neck Intensity 7 Scale Used Numeric (1 - 10) M4 OT- IP ADL's Start: 11/06/18 11:58 Freq: Status: Active Protocol: Document 11/07/18 09:01 [facility] (Rec: 11/07/18 09:14 [facility] [email or web address]) OT XNV-Aova-Mbrzlck General Evaluation Self-Feeding Ability Independent Comments OT Self-Feeding Comments Noted some coughing after swallowing. OT ADL-Grooming General Evaluation Grooming Ability Independent Comments OT Grooming Comments Pt able to do while standing with FWW. OT ADL-Oral Care General Eval Oral Care Ability Independent OT ADL-Dressing General Eval Upper Body Dressing Ability Standby Assistance Comments OT Dressing Comments Pt needing initial vc for soft collar management and then able to do while standing if front of the mirror. OT ADL-Toileting General Evaluation Toileting Ability Independent Devices Toileting Assistive Devices Grab Bars Comments OT Toileting Comments Pt may benefit form BSC at home. Otherwise need to be careful as tends to wnat to pull on FWW to get up. OT ADL-Bathing Comments OT Bathing Comments Pt not wanting to shower. M5 OT- IP IADL's Start: 11/06/18 11:58 Freq: Status: Active Protocol: Document 11/06/18 08:35 [facility] (Rec: 11/06/18 12:58 [facility] [email or web address]) OT-Instrumental Activities of Daily Living Meal Preparation Meal Preparation Comments to provide assist. [employer] Comments to provide assist. M6 OT- IP Functional Cognition Start: 11/06/18 11:58 Freq: Status: Active Protocol: Document 11/07/18 09:01 [facility] (Rec: 11/07/18 09:14 [facility] [email or web address]) Cognitive Factors Limiting Selfcare Function Cognitive Ability Level of Alertness Alert Patient Orientation Name Place Situation Attention Span Ability Capable of Focused Attention Capable of Sustained Attention Ability to Follow Commands Able to Follow One Step Commands Memory Description Short Term Impaired Safety Awareness Underestimates Need for Assistance Problem Solving Ability Needs Assist to Identify Solutions Cognitive Comments Cognitive Assessment Comments Pt forgetting to use FWW while trying to get to the bed from the FWW. M7 OT- IP Mobility and Balance Start: 11/06/18 11:58 Freq: Status: Active Protocol: Document 11/07/18 09:01 [facility] (Rec: 11/07/18 09:14 [facility] [email or web address]) OT-Transfer Assessment Sit to and From Stand Sit to and from Stand Standby Assistance Transfers Transfer Ability Standby Assistance Contact Guard Assistance 1 Person Assistance Technique Transfer Destination Bed Chair Transfer Technique Stand Step Pivot Devices Transfer Assistive Devices Gait Belt Front Wheeled Walker Comments Mobility Comments Pt tends to push FWW to the right and needing cues to stay in the walker while walking. Pt unsteady on her feet and needing from close SBA to CGA for safety while in the room. OT- Balance Assessment Sitting Balance and Reactions Static Sitting Balance Ability Normal Dynamic Sitting Balance Ability Good Standing Balance and Reactions Static Standing Balance Ability Good M8 OT- IP Objective Assessments Start: 11/06/18 11:58 Freq: Status: Active Protocol: Document 11/06/18 08:35 [facility] (Rec: 11/06/18 12:58 [facility] [email or web address]) OT Gross Range of Motion Upper Extremity Range of Motion Assessment Within Functional Limits OT Strength Comments Strength Comments BUE 3+/5 OT Sensation Assessment Comments Summary Comments Decreased sensation in forearms. M9 OT- IP Assessment and Plan Start: 11/06/18 11:58 Freq: Status: Active Protocol: Document 11/07/18 09:01 [facility] (Rec: 11/07/18 09:14 [facility] [email or web address]) OT Summary Assessment and Plan Potential Rehabilitation Potential Good Analytic Complexity at Evaluation Low Summary OT Impairments Pain Functional Mobility Dressing Toileting Bathing Toilet Transfers Shower Transfers Progress Towards Goals Slow Progress due to Pain Slow Progress due to Activity Tolerance Assessment Summary Pt states having difficulty and pain while swallowing, requested another MEAT PULLER screen, still unsteady on her feet and needing CGA with FWW, pt would benefit from caregiver training prior to going home. Pt still needing to do steps prior to going home. Goals Grooming Goal Independent Dressing Goal Independent Toileting Goal Independent Bathing Goal Standby Assistance Toilet Transfer Goal Independent Shower Transfer Goal Standby Assistance Patient/Caregiver Education Goal Caregiver Independent Assisting Patient Days to Meet Goals 2 Frequency of Treatment Frequency Of Treatment Once a Day Treatment Plan OT Treatment Plan ADL Training Functional Mobility Patient/Family Education Discharge Planning Other Treatment Recommendations and Next Shower, caregiver training Treatment Focus Discharge Recommendations OT Discharge Recommendations Home with Assistance Home Equipment Needs Shower chair, FWW, BSC
--- NOTE | 2018-11-07 09:40 | PM.DS.1 ---
History of Present Illness Date Patient Seen: 11/07/18 Time Patient Seen: 09:40 Chief complaint: [id number] Narrative: Patient has been having chronic neck pain and worsening cervical radiculopathy. Patient failed multiple conservative management with worsening pain weakness and numbness in her upper extremity. Patient has been having difficulty performing activity of daily living. After discussing risks benefits of treatment options, patient elected proceed with surgery. Discharge Providers Date of admission: 11/05/18 09:36 Discharge Date: 11/07/18 Primary care physician: Joanne Kay PA-C Consults: 11/05/18 18:12 Consult to Occupational Therapy Evaluate & Treat Comment: Physician Instructions: Evaluate and treat Consult to Physical Therapy Evaluate & Treat Comment: Physician Instructions: Evaluate and Treat 11/06/18 19:07 Consult to Respiratory Therapy Evaluate & Treat Comment: Physician Instructions: Evaluate and treat Discharge provider: Flory Donnelly PA-C Summary Discharge Diagnosis: s/p ACDF Raynauds disease osteopenia osteoarthritis hypothyroid hyperlipidemia depression Hospital Course: Sruthi was admitted for C4 through 7 Artificial cervical discectomy and fusion with Dr. Pang. She did have some significant pain postop day 1 after surgery but this end up being under control postop day 2 with Vistaril, gabapentin, and Dilaudid. She has worked with physical therapy throughout her stay. She has worked with speech therapy on postop day 1. She is eating and voiding without difficulty or assistance. Exam Vital Signs (past 8 hours): - 11/07/18 04:45 11/07/18 07:22 Temperature 99.9 F H 98.4 F Pulse Rate 96 H 94 H Respiratory Rate 16 20 Blood Pressure 154/70 H 157/74 H Pulse Oximetry 96 96 Oxygen Delivery Method Room Air Oxygen Flow Rate 0 Narrative Exam Narrative: Patient lying in bed in no acute distress. She is alert and oriented x3. Dressing on anterior neck at [facility]. Soft collar in place. Her institutional aide strength is strong and equal. Sensation intact light touch throughout bilateral upper extremities. Radial pulses symmetrical. Her pain is well controlled this morning. Objective Labs Result Diagrams: 11/06/18 05:49 Discharge Plan Discharge Plan Patient Disposition: Home Discharge comment: DC home this afternoon with family Discharge Med Rec/Prescriptions Prescriptions: New hydromorphone 2 mg Tablet 2 mg PO Q4-6H PRN (Reason: Pain, Moderate (4-6)) Qty: 50 RF: 0 docusate sodium [DOK] 100 mg Capsule 100 mg PO BID Qty: 60 RF: 0 gabapentin [Neurontin] 300 mg Capsule 300 mg PO BID Qty: 60 RF: 0 hydroxyzine pamoate 25 mg Capsule 25 mg PO Q6HR Qty: 45 RF: 0 Continued sertraline 100 mg Tablet 100 mg PO DAILY RF: 0 acetaminophen [Tylenol Arthritis Pain] 650 mg Tablet Extended Release 1,300 mg PO BID RF: 0 simvastatin 20 mg Tablet 20 mg PO BEDTIME RF: 0 levothyroxine 200 mcg Tablet 200 mcg PO DAILY RF: 0 levothyroxine 25 mcg Capsule 25 mcg PO DAILY RF: 0 albuterol sulfate 90 mcg/actuation Hfa Aerosol Inhaler 1 puff Inhalation PRN PRN (Reason: Shortness Of Breath) RF: 0 fluticasone propionate [Flonase Allergy Relief] 50 mcg/actuation [place],Suspension 1 spray Intranasal DAILY PRN (Reason: Allergy Symptoms) RF: 0 cholecalciferol (vitamin D3) [Vitamin D3] 1,000 unit Tablet 1,000 unit PO DAILY RF: 0 calcium carbonate-vitamin D3 [Calcium 500 + D] 500 mg(1,250mg) -400 unit Tablet 1 tab PO BID RF: 0 Multi Vitamin 1 tab/day PO DAILY RF: 0 Discontinued tramadol 50 mg Tablet 50 mg PO BID PRN (Reason: Pain) RF: 0 gabapentin 300 mg Capsule 300 mg PO BID RF: 0 meloxicam 7.5 mg Tablet 7.5 mg PO DAILY RF: 0 Follow up/Referrals: Frantz Pang MD [Physician] - Provider Discharge Instructions Diet: Diet as Tolerated Activity: No excessive bending, lifting, or twisting. Soft collar for comfort Cold/Heat Therapy: As needed Skin/Wound/Dressing Care Report to your healthcare provider any signs of infection, such as:: chills, fever and increased pain Dressing: Leave in place until appointment Discharge Data Primary Care Provider: Joanne Kay Attending Provider: Frantz Pang Admit Date/Time: 11/05/18 09:36
--- NOTE | 2018-11-07 10:28 | PT.IPTN ---
Current Diagnoses Other spondylosis with radiculopathy, cervical region (11/05/18) Spinal stenosis, cervical region (11/05/18) Surgery Performed Operation Date: 11/05/18 12:15 Actual Procedures p C4-5,C5-6,C6-7 ACDF w/Anterior Instru. - Frantz Pang MD Physical Therapy Treatment Note M2 PT-IP Current Condition Start: 11/06/18 10:59 Freq: NEEDED Status: Active Protocol: Document 11/06/18 09:10 [facility] (Rec: 11/06/18 11:27 [email or web address]) Physical Therapy Current Condition Current Condition Evaluation Date 11/06/18 Treatment Diagnosis C4-C7 fusion, ant diskectomy, impaired gait and activity tolerance Onset Date 11/05/18 Precautions Cervical Spine Precautions Soft Collar for Comfort Rigid Collar No Heavy Lifting Log Roll Weight Bearing Status Weight Bearing Status Weight Bear as Tolerated M3 PT-IP Subjective Start: 11/06/18 10:59 Freq: NEEDED Status: Active Protocol: Document 11/07/18 10:28 AB (Rec: 11/07/18 12:40 AB [id number]) Subjective Physical Therapy Visit Type Type Treatment Note Visit Start Time 10:28 Visit Stop Time 10:45 Total Visit Minutes 17 Number of CODE OFFICIAL Visits 0 Physical Therapy Visit Comments Patient Comments pt agreed to do PT Therapy Pain Assessment Pain When Pain Assessed At Rest Pain Present Pain Present Pain Reported Location Posterior Neck Intensity 4 Scale Used Numeric (1 - 10) Pain Management Techniques Re-positioning Timing of Activity with Medications M4 PT-IP Mobility and Gait Start: 11/06/18 10:59 Freq: NEEDED Status: Active Protocol: Document 11/07/18 10:28 AB (Rec: 11/07/18 12:40 AB [id number]) PT-Bed Mobility Assessment Supine to Sit Supine to Sit Standby Assistance 1 Person Assistance PT-Transfer Assessment Sit to and From Stand Sit to and from Stand Contact Guard Assistance Minimal Assistance 1 Person Assistance Use of Upper Extremities Equipment Transfer Assistive Device Gait Belt Front Wheeled Walker Orthotic/Prosthetic Devices or Brace: Yes Transfers Transfer Destination Toilet Transfer Technique pt ambulated using FWW Transfer Ability Level of Assist Contact Guard Assistance Minimal Assistance Comments Mobility Comments pt seems drowsy and usteady with mobility. pt ambulated to the toilet using FWW CGA to min A and max cues. pt unsafe and was trying to sit down on the toilet usp through turning and required mod to max A for positioning and controlled descent to the toilet. pt completed sit to stand from the toilet using grab bar CGA and ambulated towards the sink using FWW CGA to min A and cues. pt was able to maintain standing leaning against the sink CGA. pt agreed to sit up on the chair and ambulated using FWW CGA to min A. pt refused further ambulation. positioned pt on chair. call light and table placed within reach. M5 PT-IP Objective Assessments Start: 11/06/18 10:59 Freq: NEEDED Status: Active Protocol: Document 11/06/18 09:10 [facility] (Rec: 11/06/18 11:27 [id number]) Orientation Orientation/Cognition Level of Alertness Alert Orientation Name Age Birthday Month Date Year Day of Week Place Situation Language Function Ability No Deficits Noted Safety Awareness Understands Safety Issues Memory Description No Deficits Noted Gross Range of Motion Upper Extremity ROM Assessment Within Functional Limits Lower Extremity ROM Assessment Within Functional Limits Strength Upper Extremity Strength Assessment Bilaterally Impaired Shoulder 3+ Elbow 3+ Wrist 3+ Hand 3+ Lower Extremity Strength Assessment Bilaterally Impaired Hip 4 Knee 4 Ankle 4 Comments Strength Comments Pt overall appears a bit fragile with limited UE strength but she states she feels normal. Coordination Assessment Gross Coordination Gross Coordination WNL Assessment Finger to Nose Test Normal Performance Pronation/Supination Test Normal Performance Sensation Assessment Sensation Gross Sensation Right UE Impaired Left UE Impaired Light Touch Impaired Proprioception (Position) Impaired Sensation Description Numbness Comments Sensation Comments c/o numbness/ decreased sensitivity with touch on dorsal aspect of forearms. Muscle Tone Muscle Tone WNL Yes M6 PT-IP Treatment Start: 11/06/18 10:59 Freq: NEEDED Status: Active Protocol: Document 11/07/18 10:28 AB (Rec: 11/07/18 12:40 AB [id number]) Physical Therapy Treatment Education Education Provided Safety M7 PT-IP Assessment and Plan Start: 11/06/18 10:59 Freq: NEEDED Status: Active Protocol: Document 11/07/18 10:28 AB (Rec: 11/07/18 12:40 AB [id number]) PT Summary Assessment and Plan Potential Rehabilitation Potential Good Summary Impairments Pain ROM Strength Balance Coordination Sensation Tone Cognition Bed Mobility Transfers Gait Activity Tolerance Assessment Summary pt requiring CGA to min A with mobility, has decrease safety awareness affecting independence. d/c plan depending if spouse will be able to safely assist pt but at this time may require SNF rehab. Goals Bed Mobility Goal Independent Transfer Goal Independent Cane Front Wheeled Walker Gait Goal Independent Cane Front Wheel Walker Gait Distance 200 Other Goals climb 15 steps with B rails Days to Meet Goals 5 Frequency of Treatment Frequency Of Treatment Twice a Day Treatment Plan Physical Therapy Treatment Plan Bed Mobility Training Transfer Training Gait Training Therapeutic Exercise Balance Retraining Post Op Education Discharge Planning Hot or Cold Pack Other Recommendations and Next Treatment log roll, bed mob, transfer Focus and gait training as carina with LRAD stair climbing as carina Recommendations To Nursing Amount of Assist Needed 1 Person Assist Discharge Recommendations PT Discharge Recommendations Home with 24/7 Assist SNF Rehab Other Discharge Recommendations SNF vs home with 24/7 assist
[2018-11-07] MEDS: SODIUM CHLORIDE 0.9% FLUSH 10 ML IV ×2 (11:45→20:03)
[2018-11-07 12:25] VITALS: BP 146/58; PULSE 90; RESP 18; TEMP 37.3; O2SAT 95
[2018-11-07] MEDS: HYDROMORPHONE 2 MG TABLET PO ×4 (12:41→22:57)
[2018-11-07] MEDS: ACETAMINOPHEN 325 MG TABLET 650 MG PO (12:41)
--- NOTE | 2018-11-07 14:49 | PC.NURSE ---
Per PT/OT, patient was unable to mobilize safely for discharge to home today. was here for caregiver teaching but is not physically able to assist with patient's mobilization safely. Per PT/OT discharge was held and case management notified of possible need for skilled rehab or increased assistance upon discharge. Patient back in bed at this time, resting. Soft collar in place and dressing remains CDI. Call light within reach.
--- NOTE | 2018-11-07 15:17 | PT.IPTN ---
Current Diagnoses Other spondylosis with radiculopathy, cervical region (11/05/18) Spinal stenosis, cervical region (11/05/18) Surgery Performed Operation Date: 11/05/18 12:15 Actual Procedures p C4-5,C5-6,C6-7 ACDF w/Anterior Instru. - Frantz Pang MD Physical Therapy Treatment Note M2 PT-IP Current Condition Start: 11/06/18 10:59 Freq: NEEDED Status: Active Protocol: Document 11/06/18 09:10 HH (Rec: 11/06/18 11:27 [email or web address]) Physical Therapy Current Condition Current Condition Evaluation Date 11/06/18 Treatment Diagnosis C4-C7 fusion, ant diskectomy, impaired gait and activity tolerance Onset Date 11/05/18 Precautions Cervical Spine Precautions Soft Collar for Comfort Rigid Collar No Heavy Lifting Log Roll Weight Bearing Status Weight Bearing Status Weight Bear as Tolerated M3 PT-IP Subjective Start: 11/06/18 10:59 Freq: NEEDED Status: Active Protocol: Document 11/07/18 15:17 AB (Rec: 11/07/18 15:37 AB [id number]) Subjective Physical Therapy Visit Type Type Treatment Note Visit Start Time 15:17 Visit Stop Time 15:30 Total Visit Minutes 13 Number of BIBLE TEACHER Visits 0 Physical Therapy Visit Comments Patient Comments pt agreeable to do PT Therapy Pain Assessment Pain When Pain Assessed At Rest Pain Present Pain Present Pain Reported Location Posterior Neck Intensity 4 Scale Used Numeric (1 - 10) Pain Management Techniques Re-positioning Timing of Activity with Medications M4 PT-IP Mobility and Gait Start: 11/06/18 10:59 Freq: NEEDED Status: Active Protocol: Document 11/07/18 15:17 AB (Rec: 11/07/18 15:37 AB [id number]) PT-Bed Mobility Assessment Supine to Sit Supine to Sit Standby Assistance PT-Transfer Assessment Sit to and From Stand Sit to and from Stand Contact Guard Assistance Equipment Transfer Assistive Device Gait Belt Front Wheeled Walker Orthotic/Prosthetic Devices or Brace: No Gait Assessment Gait Gait Assistance Required: Contact Guard Assist Distance (Feet) 75 Able to Maintain Weight Bearing Status Yes During Gait Assistive Devices Assistive Device Gait Belt Front Wheeled Walker Orthotic/Prosthetic Devices or Brace: Yes Gait Deviations General Gait Pattern Antalgic Decreased Stride Length Decreased Feet Clearance Flexed Trunk Factors Limiting Gait Function Factors Limiting Gait Function Decreased Activity Tolerance Decreased Strength Difficulty Following Directions Limited Range of Motion Pain Poor Balance Poor Safety Awareness Comments Gait Comments pt presents with unsteady gait and tends to drag BLE forward . M5 PT-IP Objective Assessments Start: 11/06/18 10:59 Freq: NEEDED Status: Active Protocol: Document 11/06/18 09:10 HH (Rec: 11/06/18 11:27 HH [email or web address]) Orientation Orientation/Cognition Level of Alertness Alert Orientation Name Age Birthday Month Date Year Day of Week Place Situation Language Function Ability No Deficits Noted Safety Awareness Understands Safety Issues Memory Description No Deficits Noted Gross Range of Motion Upper Extremity ROM Assessment Within Functional Limits Lower Extremity ROM Assessment Within Functional Limits Strength Upper Extremity Strength Assessment Bilaterally Impaired Shoulder 3+ Elbow 3+ Wrist 3+ Hand 3+ Lower Extremity Strength Assessment Bilaterally Impaired Hip 4 Knee 4 Ankle 4 Comments Strength Comments Pt overall appears a bit fragile with limited UE strength but she states she feels normal. Coordination Assessment Gross Coordination Gross Coordination WNL Assessment Finger to Nose Test Normal Performance Pronation/Supination Test Normal Performance Sensation Assessment Sensation Gross Sensation Right UE Impaired Left UE Impaired Light Touch Impaired Proprioception (Position) Impaired Sensation Description Numbness Comments Sensation Comments c/o numbness/ decreased sensitivity with touch on dorsal aspect of forearms. Muscle Tone Muscle Tone WNL Yes M6 PT-IP Treatment Start: 11/06/18 10:59 Freq: NEEDED Status: Active Protocol: Document 11/07/18 15:17 AB (Rec: 11/07/18 15:37 AB [id number]) Physical Therapy Treatment Education Education Provided Precautions Safety M7 PT-IP Assessment and Plan Start: 11/06/18 10:59 Freq: NEEDED Status: Active Protocol: Document 11/07/18 15:17 AB (Rec: 11/07/18 15:37 AB [id number]) PT Summary Assessment and Plan Potential Rehabilitation Potential Fair Summary Impairments Pain ROM Strength Balance Coordination Sensation Tone Cognition Bed Mobility Transfers Gait Activity Tolerance Progress Towards Goals Slow Progress due to Pain Slow Progress due to Activity Tolerance Assessment Summary pt continues to be drowsy but better than this morning. pt has decrease activity tolerance with increase unsteadiness towards end of ambulation. pt with decrease BLE elevation during ambulation. pt's spouse will not be able to assist pt due to his own medical issues. pt will require SNF rehab to improve functional independence. Goals Bed Mobility Goal Independent Transfer Goal Independent Cane Front Wheeled Walker Gait Goal Independent Cane Front Wheel Walker Gait Distance 200 Other Goals climb 15 steps with B rails Days to Meet Goals 5 Frequency of Treatment Frequency Of Treatment Twice a Day Treatment Plan Physical Therapy Treatment Plan Bed Mobility Training Transfer Training Gait Training Therapeutic Exercise Balance Retraining Post Op Education Discharge Planning Hot or Cold Pack Other Recommendations and Next Treatment log roll, bed mob, transfer Focus and gait training as carina with LRAD stair climbing as carina Recommendations To Nursing Amount of Assist Needed 1 Person Assist Discharge Recommendations PT Discharge Recommendations SNF Rehab
[2018-11-07 16:01] VITALS: BP 135/62; PULSE 80; RESP 16; TEMP 36.8; O2SAT 96
--- NOTE | 2018-11-07 16:14 | CM.DPC ---
DCP/continued: Reviewed chart. Received verbal referral from therapy indicating that patient may need SNF. Met with patient and spouse/Chalo. Patient agreeable to SNF if she does not improve. [facility] SN[facility] choice is [facility]. PASRR completed and clinical faxed to [facility] for review. Patient eligible for SNF as of 11-08-18. P: SNF vs. home when stable. Current recommendation is SNF. [facility] faxed this afternoon. LINDSEY Mejia
--- NOTE | 2018-11-07 17:11 | OT.IP.TRT ---
Current Diagnoses Other spondylosis with radiculopathy, cervical region (11/05/18) Spinal stenosis, cervical region (11/05/18) Surgery Performed Operation Date: 11/05/18 12:15 Actual Procedures p C4-5,C5-6,C6-7 ACDF w/Anterior Instru. - Frantz Pang MD Occupational Therapy Treatment Note M2 OT-IP Current Condition Start: 11/06/18 11:58 Freq: Status: Active Protocol: Document 11/06/18 08:35 [facility] (Rec: 11/06/18 12:58 [facility] [email or web address]) Occupational Therapy Current Condition Current Condition Evaluation Date 11/06/18 Treatment Diagnosis Cervical Stenosis Diagnosis Onset Date 11/05/18 Post Operative Precautions Cervical Spine Precautions Soft Collar for Comfort No Heavy Lifting Log Roll M3 OT- IP Subjective and Pain Start: 11/06/18 11:58 Freq: Status: Active Protocol: Document 11/07/18 13:55 [facility] (Rec: 11/07/18 17:11 [facility] [email or web address]) OT- Subjective Occupational Therapy Visit Type Type Treatment Note Visit Start Time 13:55 Visit Stop Time 14:20 Total Visit Minutes 25 Occupational Therapy Visit Comments Patient Comments Pt's came for family training. Pt and now feel that pt shoulder go to skilled rehab prior to going home. OT Pain Assessment Pain When Pain Assessed At Rest Pain Present Pain Present Denied Pain M4 OT- IP ADL's Start: 11/06/18 11:58 Freq: Status: Active Protocol: Document 11/07/18 13:55 [facility] (Rec: 11/07/18 17:11 [facility] [email or web address]) OT ADL-Grooming General Evaluation Grooming Ability Standby Assistance OT ADL-Toileting General Evaluation Toileting Ability Standby Assistance Devices Toileting Assistive Devices Grab Bars M5 OT- IP IADL's Start: 11/06/18 11:58 Freq: Status: Active Protocol: Document 11/06/18 08:35 [facility] (Rec: 11/06/18 12:58 [facility] [email or web address]) OT-Instrumental Activities of Daily Living Meal Preparation Meal Preparation Comments to provide assist. Child Welfare Consultant Child Welfare Consultant Comments to provide assist. M6 OT- IP Functional Cognition Start: 11/06/18 11:58 Freq: Status: Active Protocol: Document 11/07/18 13:55 [facility] (Rec: 11/07/18 17:11 [facility] [email or web address]) Cognitive Factors Limiting Selfcare Function Cognitive Ability Level of Alertness Alert Drowsy Patient Orientation Name Place Situation Attention Span Ability Capable of Focused Attention Ability to Follow Commands Able to Follow One Step Commands Memory Description Short Term Impaired Safety Awareness Underestimates Need for Assistance Problem Solving Ability Needs Assist to Identify Solutions Cognitive Comments Cognitive Assessment Comments Pt's states pt's cognition far from baseline and not thinking clearly and was not able to may out the text she had texted his earlier. M7 OT- IP Mobility and Balance Start: 11/06/18 11:58 Freq: Status: Active Protocol: Document 11/07/18 13:55 [facility] (Rec: 11/07/18 17:11 [facility] [email or web address]) OT- Bed Mobility Assessment Rolling Type of Rolling Roll to Right Supine to Sit Supine to Sit Assist Standby Assistance Scooting Scooting to Edge of Bed Standby Assistance OT-Transfer Assessment Sit to and From Stand Sit to and from Stand Standby Assistance Contact Guard Assistance Transfers Transfer Ability Standby Assistance Contact Guard Assistance 1 Person Assistance Technique Transfer Destination Bed Chair Devices Transfer Assistive Devices Gait Belt Front Wheeled Walker Comments Mobility Comments Pt still needing cues to keep FWW in the front of her, and cues to do log rolling to get back to bed. Pt has good understanding for pt's needs howeve has difficulty himself as having difficulty to stand form the window bench and pt needs to be MOD I at home. OT- Balance Assessment Sitting Balance and Reactions Static Sitting Balance Ability Normal Dynamic Sitting Balance Ability Good Standing Balance and Reactions Static Standing Balance Ability Fair M8 OT- IP Objective Assessments Start: 11/06/18 11:58 Freq: Status: Active Protocol: Document 11/06/18 08:35 [facility] (Rec: 11/06/18 12:58 [facility] [email or web address]) OT Gross Range of Motion Upper Extremity Range of Motion Assessment Within Functional Limits OT Strength Comments Strength Comments BUE 3+/5 OT Sensation Assessment Comments Summary Comments Decreased sensation in forearms. M9 OT- IP Assessment and Plan Start: 11/06/18 11:58 Freq: Status: Active Protocol: Document 11/07/18 13:55 [facility] (Rec: 11/07/18 17:11 [facility] [email or web address]) OT Summary Assessment and Plan Potential Rehabilitation Potential Good Analytic Complexity at Evaluation Low Summary OT Impairments Pain Functional Mobility Dressing Toileting Bathing Toilet Transfers Shower Transfers Progress Towards Goals Slow Progress due to Pain Slow Progress due to Cognition Assessment Summary Pt still having some difficulty to swallow, short term memory , unsteady of her feet, and would benefit from skilled rehab. Pt's not able to assist at all only able to provide safety cues. In addition pt has 14 steps in order to get up to her upstairs. Goals Grooming Goal Independent Dressing Goal Independent Toileting Goal Independent Bathing Goal Standby Assistance Toilet Transfer Goal Independent Shower Transfer Goal Standby Assistance Patient/Caregiver Education Goal Caregiver Independent Assisting Patient Days to Meet Goals 2 Frequency of Treatment Frequency Of Treatment Once a Day Treatment Plan OT Treatment Plan ADL Training Functional Mobility Patient/Family Education Discharge Planning Other Treatment Recommendations and Next Shower, caregiver training Treatment Focus Discharge Recommendations OT Discharge Recommendations SNF Rehab Home Equipment Needs Shower chair, FWW, BSC
[2018-11-07 20:00] VITALS: BP 150/64; PULSE 92; RESP 18; TEMP 37.8; O2SAT 97
[2018-11-07] MEDS: SENNOSIDES 8.6 MG TABLET 17.2 MG PO (20:02)
[2018-11-08] VITALS (7 sets, daily range): BP systolic 117–153; BP diastolic 54–70; PULSE 86–90; RESP 16–20; TEMP 36.7–37.7; O2SAT 96–99
[2018-11-08] MEDS: HYDROMORPHONE 2 MG TABLET PO ×4 (03:40→21:14)
[2018-11-08] MEDS: hydrOXYzine pamoate 25 MG CAPSULE PO ×2 (03:41→08:51)
[2018-11-08] MEDS: ACETAMINOPHEN 325 MG TABLET 650 MG PO ×2 (08:51→21:15)
--- NOTE | 2018-11-08 08:51 | PM.PNPO.1 ---
Subjective Date Patient Seen: 11/08/18 Time Patient Seen: 08:51 Interval history: Still having a lot of pain in the back of her neck. Still very limited with mobility. She is feeling stronger but does not feel like she can take care of herself independently. Exam Vital Signs (past 8 hours): - Tmax 100.1 last night 11/08/18 00:55 11/08/18 05:00 Temperature 98.1 F 98.2 F Pulse Rate 87 90 Respiratory Rate 16 16 Blood Pressure 150/70 H 150/66 H Pulse Oximetry 96 96 Oxygen Delivery Method Room Air Oxygen Flow Rate 0 Const Orientation: alert and oriented x3 Back/Spine/Pelvis Other: Mild drainage on dressing. 5/5 motor both upper extremities Objective Labs Result Diagrams: 11/06/18 05:49 Assessment & Plan Post-op Postoperative Procedures Operation Date: 11/05/18 12:15 Actual Procedures Side Surgeon p C4-5,C5-6,C6-7 ACDF w/Anterior Instru. Frantz Pang MD she is still very limited on her mobility and considering senior living prior to going home. I encouraged her to continue with physical therapy. She needs to work on deep breathing and she appears to have atelectasis induced fevers. we will work on senior living but it looks like probably tomorrow.
[2018-11-08] MEDS: DOCUSATE 100 MG CAPSULE PO ×2 (09:59→21:14)
[2018-11-08] MEDS: LEVOTHYROXINE 25 MCG TABLET PO (10:00)
[2018-11-08] MEDS: GABAPENTIN 300 MG CAPSULE PO ×2 (10:00→21:15)
[2018-11-08] MEDS: SERTRALINE 50 MG TABLET 100 MG PO (10:00)
[2018-11-08] MEDS: LEVOTHYROXINE 100 MCG TABLET 200 MCG PO (10:00)
[2018-11-08] MEDS: SODIUM CHLORIDE 0.9% FLUSH 10 ML IV ×2 (10:01→21:14)
--- NOTE | 2018-11-08 12:25 | CM.DPC ---
DCP SNF Planning Per MD, pt making progress and possible d/c tomorrow Friday if medically stable. SW called pt's first SNF preference, [facility], and staff stated they have no admissions staff today (Friday) and therefore cannot determine if they can accept the pt at d/c but did confirm they received the clinicals yesterday to review. SW met bedside with pt and explained role and she confirms that SNF needed at d/c. SW discussed that [facility] cannot determine if they can accept until tomorrow (Fri) and pt is agreeable to picking a Second SNF preference. SW provided the SNF Choice List to review and pt states her preference would be [facility] due to location closest to her house. Pt agreeable to referral to [facility]. SW faxed new referral to [facility] and called admissions and requested review for possible discharge tomorrow if stable. SW provided pt with her Medicare Rights in anticipation of possible d/c tomorrow and pt acknowledged understanding and signed her Medicare Message. Plan: SW to follow in the morning with [facility] and [facility] to determine which can accept the pt at discharge. PASRR previously completed. LINDSEY Vallejo
--- NOTE | 2018-11-08 12:54 | PT.IPTN ---
Current Diagnoses Other spondylosis with radiculopathy, cervical region (11/05/18) Spinal stenosis, cervical region (11/05/18) Surgery Performed Operation Date: 11/05/18 12:15 Actual Procedures p C4-5,C5-6,C6-7 ACDF w/Anterior Instru. - Frantz Pang MD Physical Therapy Treatment Note M2 PT-IP Current Condition Start: 11/06/18 10:59 Freq: NEEDED Status: Active Protocol: Document 11/06/18 09:10 [facility] (Rec: 11/06/18 11:27 [facility] [email or web address]) Physical Therapy Current Condition Current Condition Evaluation Date 11/06/18 Treatment Diagnosis C4-C7 fusion, ant diskectomy, impaired gait and activity tolerance Onset Date 11/05/18 Precautions Cervical Spine Precautions Soft Collar for Comfort Rigid Collar No Heavy Lifting Log Roll Weight Bearing Status Weight Bearing Status Weight Bear as Tolerated M3 PT-IP Subjective Start: 11/06/18 10:59 Freq: NEEDED Status: Active Protocol: Document 11/08/18 11:05 [facility] (Rec: 11/08/18 12:53 [facility] [email or web address]) Subjective Physical Therapy Visit Type Type Treatment Note Visit Start Time 11:05 Visit Stop Time 11:16 Total Visit Minutes 11 Number of TV PRODUCTION ASSISTANT Visits 1 Physical Therapy Visit Comments Patient Comments pt agreeable to do PT Therapy Pain Assessment Pain When Pain Assessed During Mobility Pain Present Pain Present Pain Reported Location Posterior Neck Intensity 8 Scale Used Numeric (1 - 10) Pain Management Techniques Re-positioning Timing of Activity with Medications M4 PT-IP Mobility and Gait Start: 11/06/18 10:59 Freq: NEEDED Status: Active Protocol: Document 11/08/18 11:05 [facility] (Rec: 11/08/18 12:53 [facility] [email or web address]) PT-Transfer Assessment Sit to and From Stand Sit to and from Stand Contact Guard Assistance Equipment Transfer Assistive Device Gait Belt Front Wheeled Walker Orthotic/Prosthetic Devices or Brace: No Transfers Transfer Destination Chair Transfer Ability Level of Assist Contact Guard Assistance Gait Assessment Gait Gait Assistance Required: Contact Guard Assist Distance (Feet) 70 Able to Maintain Weight Bearing Status Yes During Gait Assistive Devices Assistive Device Gait Belt Front Wheeled Walker Orthotic/Prosthetic Devices or Brace: Yes Gait Deviations General Gait Pattern Antalgic Decreased Stride Length Decreased Feet Clearance Flexed Trunk Factors Limiting Gait Function Factors Limiting Gait Function Decreased Activity Tolerance Decreased Strength Difficulty Following Directions Limited Range of Motion Pain Poor Balance Poor Safety Awareness Comments Gait Comments Pt ambulated w/o LOB requiring cues for posture and proper walker positioning. Stair Climbing Assessment Comments Stair Climbing Comments did not attempt due to fatigue M5 PT-IP Objective Assessments Start: 11/06/18 10:59 Freq: NEEDED Status: Active Protocol: Document 11/06/18 09:10 [facility] (Rec: 11/06/18 11:27 [facility] [email or web address]) Orientation Orientation/Cognition Level of Alertness Alert Orientation Name Age Birthday Month Date Year Day of Week Place Situation Language Function Ability No Deficits Noted Safety Awareness Understands Safety Issues Memory Description No Deficits Noted Gross Range of Motion Upper Extremity ROM Assessment Within Functional Limits Lower Extremity ROM Assessment Within Functional Limits Strength Upper Extremity Strength Assessment Bilaterally Impaired Shoulder 3+ Elbow 3+ Wrist 3+ Hand 3+ Lower Extremity Strength Assessment Bilaterally Impaired Hip 4 Knee 4 Ankle 4 Comments Strength Comments Pt overall appears a bit fragile with limited UE strength but she states she feels normal. Coordination Assessment Gross Coordination Gross Coordination WNL Assessment Finger to Nose Test Normal Performance Pronation/Supination Test Normal Performance Sensation Assessment Sensation Gross Sensation Right UE Impaired Left UE Impaired Light Touch Impaired Proprioception (Position) Impaired Sensation Description Numbness Comments Sensation Comments c/o numbness/ decreased sensitivity with touch on dorsal aspect of forearms. Muscle Tone Muscle Tone WNL Yes M6 PT-IP Treatment Start: 11/06/18 10:59 Freq: NEEDED Status: Active Protocol: Document 11/07/18 15:17 AB (Rec: 11/07/18 15:37 AB [id number]) Physical Therapy Treatment Education Education Provided Precautions Safety M7 PT-IP Assessment and Plan Start: 11/06/18 10:59 Freq: NEEDED Status: Active Protocol: Document 11/08/18 11:05 [facility] (Rec: 11/08/18 12:53 [facility] [email or web address]) PT Summary Assessment and Plan Potential Rehabilitation Potential Fair Summary Impairments Pain ROM Strength Balance Coordination Sensation Tone Cognition Bed Mobility Transfers Gait Activity Tolerance Progress Towards Goals Slow Progress due to Pain Slow Progress due to Activity Tolerance Assessment Summary Pt continues to have decreased activity tolerance and fatigues quickly with gait. Pt requires cues for posture and gaze in vaughn for safety. Pt c /o weakness in LEs during gait . Pt will require SNF rehab to improve functional independence. Goals Bed Mobility Goal Independent Transfer Goal Independent Cane Front Wheeled Walker Gait Goal Independent Cane Front Wheel Walker Gait Distance 200 Other Goals climb 15 steps with B rails Days to Meet Goals 5 Frequency of Treatment Frequency Of Treatment Twice a Day Treatment Plan Physical Therapy Treatment Plan Bed Mobility Training Transfer Training Gait Training Therapeutic Exercise Balance Retraining Post Op Education Discharge Planning Hot or Cold Pack Other Recommendations and Next Treatment log roll, bed mob, transfer Focus and gait training as carina with LRAD stair climbing as carina Recommendations To Nursing Amount of Assist Needed 1 Person Assist Discharge Recommendations PT Discharge Recommendations SNF Rehab
--- NOTE | 2018-11-08 13:53 | PC.NURSE ---
SHIFT SUMMARY: PATIENT TAKING DILAUDID AND VISTARIL FOR PAIN. DRSG NEARLY 100% SATURATED W/ SEROUS/SANG DRAINAGE THIS AM. DRSG CHANGED PER MD ORDER. MILD BRUISING AND SWELLING NOTED. NO ERYTHEMA. STERI-STRIP INTACT, W/ MOIST DRAINAGE. APPLIED 4X4 FOLDED IN HALF AND TEGADERM. PATIENT NOTED TO HAVE PHLEGM THAT WAS DIFFICULT TO CLEAR THIS AM. LUNGS CLEAR HOWEVER. SHE WAS INSTRUCTED ON DB&C. USE OF I.S. AND PROVIDED [place] SUCTION. SHE AMBULATED IN [place] W/ PHYSICAL THERAPY. THIS AFTERNOON SHE IS DROWSY, AWAKEN'S APPROPRIATELY ONLY REACHED MAX OF 500CC'S ON I.S. SHE WAS ASSISTED TO RECLINER W/ CHAIR ALARM ACTIVE. SHE AGREES TO DELAY PAIN MEDICATION, R/T DROWSINESS.
--- NOTE | 2018-11-08 15:40 | PT.IPTN ---
Current Diagnoses Other spondylosis with radiculopathy, cervical region (11/05/18) Spinal stenosis, cervical region (11/05/18) Surgery Performed Operation Date: 11/05/18 12:15 Actual Procedures p C4-5,C5-6,C6-7 ACDF w/Anterior Instru. - Frantz Pang MD Physical Therapy Treatment Note M2 PT-IP Current Condition Start: 11/06/18 10:59 Freq: NEEDED Status: Active Protocol: Document 11/06/18 09:10 HH (Rec: 11/06/18 11:27 HH [id number]) Physical Therapy Current Condition Current Condition Evaluation Date 11/06/18 Treatment Diagnosis C4-C7 fusion, ant diskectomy, impaired gait and activity tolerance Onset Date 11/05/18 Precautions Cervical Spine Precautions Soft Collar for Comfort Rigid Collar No Heavy Lifting Log Roll Weight Bearing Status Weight Bearing Status Weight Bear as Tolerated M3 PT-IP Subjective Start: 11/06/18 10:59 Freq: NEEDED Status: Active Protocol: Document 11/08/18 15:39 CLB (Rec: 11/08/18 15:39 CLB [email or web address]) Subjective Physical Therapy Visit Type Type Patient Refusal Notes Pt refused stating her pain was too high. Helped pt adjust pillows under head before leaving pt and informed RN. M4 PT-IP Mobility and Gait Start: 11/06/18 10:59 Freq: NEEDED Status: Active Protocol: Document 11/08/18 11:05 CLB (Rec: 11/08/18 12:53 CLB [email or web address]) PT-Transfer Assessment Sit to and From Stand Sit to and from Stand Contact Guard Assistance Equipment Transfer Assistive Device Gait Belt Front Wheeled Walker Orthotic/Prosthetic Devices or Brace: No Transfers Transfer Destination Chair Transfer Ability Level of Assist Contact Guard Assistance Gait Assessment Gait Gait Assistance Required: Contact Guard Assist Distance (Feet) 70 Able to Maintain Weight Bearing Status Yes During Gait Assistive Devices Assistive Device Gait Belt Front Wheeled Walker Orthotic/Prosthetic Devices or Brace: Yes Gait Deviations General Gait Pattern Antalgic Decreased Stride Length Decreased Feet Clearance Flexed Trunk Factors Limiting Gait Function Factors Limiting Gait Function Decreased Activity Tolerance Decreased Strength Difficulty Following Directions Limited Range of Motion Pain Poor Balance Poor Safety Awareness Comments Gait Comments Pt ambulated w/o LOB requiring cues for posture and proper walker positioning. Stair Climbing Assessment Comments Stair Climbing Comments did not attempt due to fatigue M5 PT-IP Objective Assessments Start: 11/06/18 10:59 Freq: NEEDED Status: Active Protocol: Document 11/06/18 09:10 HH (Rec: 11/06/18 11:27 HH [email or web address]) Orientation Orientation/Cognition Level of Alertness Alert Orientation Name Age Birthday Month Date Year Day of Week Place Situation Language Function Ability No Deficits Noted Safety Awareness Understands Safety Issues Memory Description No Deficits Noted Gross Range of Motion Upper Extremity ROM Assessment Within Functional Limits Lower Extremity ROM Assessment Within Functional Limits Strength Upper Extremity Strength Assessment Bilaterally Impaired Shoulder 3+ Elbow 3+ Wrist 3+ Hand 3+ Lower Extremity Strength Assessment Bilaterally Impaired Hip 4 Knee 4 Ankle 4 Comments Strength Comments Pt overall appears a bit fragile with limited UE strength but she states she feels normal. Coordination Assessment Gross Coordination Gross Coordination WNL Assessment Finger to Nose Test Normal Performance Pronation/Supination Test Normal Performance Sensation Assessment Sensation Gross Sensation Right UE Impaired Left UE Impaired Light Touch Impaired Proprioception (Position) Impaired Sensation Description Numbness Comments Sensation Comments c/o numbness/ decreased sensitivity with touch on dorsal aspect of forearms. Muscle Tone Muscle Tone WNL Yes M6 PT-IP Treatment Start: 11/06/18 10:59 Freq: NEEDED Status: Active Protocol: Document 11/07/18 15:17 AB (Rec: 11/07/18 15:37 AB [id number]) Physical Therapy Treatment Education Education Provided Precautions Safety M7 PT-IP Assessment and Plan Start: 11/06/18 10:59 Freq: NEEDED Status: Active Protocol: Document 11/08/18 11:05 CLB (Rec: 11/08/18 12:53 CLB [email or web address]) PT Summary Assessment and Plan Potential Rehabilitation Potential Fair Summary Impairments Pain ROM Strength Balance Coordination Sensation Tone Cognition Bed Mobility Transfers Gait Activity Tolerance Progress Towards Goals Slow Progress due to Pain Slow Progress due to Activity Tolerance Assessment Summary Pt continues to have decreased activity tolerance and fatigues quickly with gait. Pt requires cues for posture and gaze in vaughn for safety. Pt c /o weakness in LEs during gait . Pt will require SNF rehab to improve functional independence. Goals Bed Mobility Goal Independent Transfer Goal Independent Cane Front Wheeled Walker Gait Goal Independent Cane Front Wheel Walker Gait Distance 200 Other Goals climb 15 steps with B rails Days to Meet Goals 5 Frequency of Treatment Frequency Of Treatment Twice a Day Treatment Plan Physical Therapy Treatment Plan Bed Mobility Training Transfer Training Gait Training Therapeutic Exercise Balance Retraining Post Op Education Discharge Planning Hot or Cold Pack Other Recommendations and Next Treatment log roll, bed mob, transfer Focus and gait training as carina with LRAD stair climbing as carina Recommendations To Nursing Amount of Assist Needed 1 Person Assist Discharge Recommendations PT Discharge Recommendations SNF Rehab
[2018-11-08] MEDS: SENNOSIDES 8.6 MG TABLET 17.2 MG PO (21:15)
[2018-11-08] MEDS: SIMVASTATIN 20 MG TABLET PO (21:15)
[2018-11-09] VITALS: BP 133/66; PULSE 78; RESP 18; TEMP 36.7; O2SAT 97
[2018-11-09 04:15] VITALS: BP 136/60; PULSE 81; RESP 20; TEMP 36.9; O2SAT 98
[2018-11-09] MEDS: LEVOTHYROXINE 100 MCG TABLET 200 MCG PO (06:56)
[2018-11-09] MEDS: LEVOTHYROXINE 25 MCG TABLET PO (06:56)
[2018-11-09] MEDS: HYDROMORPHONE 2 MG TABLET PO ×3 (06:58→14:09)
[2018-11-09 07:30] VITALS: BP 125/71; PULSE 92; RESP 18; TEMP 37; O2SAT 97
--- NOTE | 2018-11-09 09:23 | PT.IPTN ---
Current Diagnoses Other spondylosis with radiculopathy, cervical region (11/05/18) Spinal stenosis, cervical region (11/05/18) Surgery Performed Operation Date: 11/05/18 12:15 Actual Procedures p C4-5,C5-6,C6-7 ACDF w/Anterior Instru. - Frantz Pang MD Physical Therapy Treatment Note M2 PT-IP Current Condition Start: 11/06/18 10:59 Freq: NEEDED Status: Active Protocol: Document 11/06/18 09:10 HH (Rec: 11/06/18 11:27 [email or web address]) Physical Therapy Current Condition Current Condition Evaluation Date 11/06/18 Treatment Diagnosis C4-C7 fusion, ant diskectomy, impaired gait and activity tolerance Onset Date 11/05/18 Precautions Cervical Spine Precautions Soft Collar for Comfort Rigid Collar No Heavy Lifting Log Roll Weight Bearing Status Weight Bearing Status Weight Bear as Tolerated M3 PT-IP Subjective Start: 11/06/18 10:59 Freq: NEEDED Status: Active Protocol: Document 11/09/18 09:00 CLB (Rec: 11/09/18 09:23 CLB [id number]) Subjective Physical Therapy Visit Type Type Treatment Note Visit Start Time 09:00 Visit Stop Time 09:15 Total Visit Minutes 15 Number of FINANCIAL AID COORDINATOR Visits 2 Physical Therapy Visit Comments Patient Comments pt agreeable to do PT Therapy Pain Assessment Pain When Pain Assessed During Mobility Pain Present Pain Present Pain Reported Location Posterior Neck Intensity 6 Scale Used Numeric (1 - 10) Pain Management Techniques Re-positioning Timing of Activity with Medications M4 PT-IP Mobility and Gait Start: 11/06/18 10:59 Freq: NEEDED Status: Active Protocol: Document 11/09/18 09:00 CLB (Rec: 11/09/18 09:23 CLB [id number]) PT-Transfer Assessment Sit to and From Stand Sit to and from Stand Contact Guard Assistance Equipment Transfer Assistive Device Gait Belt Front Wheeled Walker Orthotic/Prosthetic Devices or Brace: Yes Transfers Transfer Destination Chair Transfer Ability Level of Assist Contact Guard Assistance Comments Mobility Comments Cues for hand placement for safety. Gait Assessment Gait Gait Assistance Required: Contact Guard Assist Distance (Feet) 100 Able to Maintain Weight Bearing Status Yes During Gait Assistive Devices Assistive Device Gait Belt Front Wheeled Walker Orthotic/Prosthetic Devices or Brace: Yes Gait Deviations General Gait Pattern Antalgic Decreased Stride Length Decreased Feet Clearance Flexed Trunk Factors Limiting Gait Function Factors Limiting Gait Function Decreased Activity Tolerance Decreased Strength Difficulty Following Directions Limited Range of Motion Pain Poor Balance Poor Safety Awareness Comments Gait Comments Pt increased ambulation requiring two standing rest breaks. Stair Climbing Assessment Comments Stair Climbing Comments did not attempt due to fatigue M5 PT-IP Objective Assessments Start: 11/06/18 10:59 Freq: NEEDED Status: Active Protocol: Document 11/06/18 09:10 (Rec: 11/06/18 11:27 [email or web address]) Orientation Orientation/Cognition Level of Alertness Alert Orientation Name Age Birthday Month Date Year Day of Week Place Situation Language Function Ability No Deficits Noted Safety Awareness Understands Safety Issues Memory Description No Deficits Noted Gross Range of Motion Upper Extremity ROM Assessment Within Functional Limits Lower Extremity ROM Assessment Within Functional Limits Strength Upper Extremity Strength Assessment Bilaterally Impaired Shoulder 3+ Elbow 3+ Wrist 3+ Hand 3+ Lower Extremity Strength Assessment Bilaterally Impaired Hip 4 Knee 4 Ankle 4 Comments Strength Comments Pt overall appears a bit fragile with limited UE strength but she states she feels normal. Coordination Assessment Gross Coordination Gross Coordination WNL Assessment Finger to Nose Test Normal Performance Pronation/Supination Test Normal Performance Sensation Assessment Sensation Gross Sensation Right UE Impaired Left UE Impaired Light Touch Impaired Proprioception (Position) Impaired Sensation Description Numbness Comments Sensation Comments c/o numbness/ decreased sensitivity with touch on dorsal aspect of forearms. Muscle Tone Muscle Tone WNL Yes M6 PT-IP Treatment Start: 11/06/18 10:59 Freq: NEEDED Status: Active Protocol: Document 11/09/18 09:00 CLB (Rec: 11/09/18 09:23 CLB [id number]) Physical Therapy Treatment Exercises Exercises Gluteal Sets Quad Sets M7 PT-IP Assessment and Plan Start: 11/06/18 10:59 Freq: NEEDED Status: Active Protocol: Document 11/09/18 09:00 CLB (Rec: 11/09/18 09:23 CLB [id number]) PT Summary Assessment and Plan Potential Rehabilitation Potential Fair Summary Impairments Pain ROM Strength Balance Coordination Sensation Tone Cognition Bed Mobility Transfers Gait Activity Tolerance Progress Towards Goals Slow Progress due to Pain Slow Progress due to Activity Tolerance Assessment Summary Pt continues to have decreased activity tolerance and fatigues quickly with gait. Pt requires cues for hand placement with sit<>stand for safety. Pt c/o weakness in LEs during gait. Pt will require SNF rehab to improve functional independence. Goals Bed Mobility Goal Independent Transfer Goal Independent Cane Front Wheeled Walker Gait Goal Independent Cane Front Wheel Walker Gait Distance 200 Other Goals climb 15 steps with B rails Days to Meet Goals 5 Frequency of Treatment Frequency Of Treatment Twice a Day Treatment Plan Physical Therapy Treatment Plan Bed Mobility Training Transfer Training Gait Training Therapeutic Exercise Balance Retraining Post Op Education Discharge Planning Hot or Cold Pack Other Recommendations and Next Treatment log roll, bed mob, transfer Focus and gait training as carina with LRAD stair climbing as carina Recommendations To Nursing Amount of Assist Needed 1 Person Assist Discharge Recommendations PT Discharge Recommendations SNF Rehab
[2018-11-09] MEDS: GABAPENTIN 300 MG CAPSULE PO (10:08)
[2018-11-09] MEDS: DOCUSATE 100 MG CAPSULE PO (10:08)
[2018-11-09] MEDS: MULTIVITAMIN 1 TABLET 1 TAB PO (10:08)
[2018-11-09] MEDS: CALCIUM CARB/VIT D3 500/200 TABLET 1 EACH PO (10:08)
[2018-11-09] MEDS: SERTRALINE 50 MG TABLET 100 MG PO (10:09)
[2018-11-09] MEDS: SODIUM CHLORIDE 0.9% FLUSH 10 ML IV (10:09)
--- NOTE | 2018-11-09 10:44 | ST.IPCSEOM ---
Care Team Visit Care Team Role Provider Type Joanne Kay PA-C Primary Care Provider Non-Staff Specialty: Medical Address: [address] [place] [address] [address], [place], [address] Email: Frantz Pang MD Admit Provider Physician Attending Provider Specialty: Orthopedic Surgery Address: [address] [place] [address], [place], [address] Email: [email or web address] Current Diagnoses Other spondylosis with radiculopathy, cervical region (11/05/18) Spinal stenosis, cervical region (11/05/18) Past Medical History (Last Updated 10/22/18 @ 09:15 by Yvonne Tovar RN) Allergic rhinitis (Acute Medical) Cervical spinal stenosis (Acute Medical) Depression (Acute Medical) H/O: hysterectomy (Acute Medical) HLD (hyperlipidemia) (Acute Medical) Hypothyroid (Acute Medical) Osteoarthritis (Acute Medical) Osteopenia (Acute Medical) Raynaud's disease (Acute Medical) Seizures (Acute Medical) Childhood, last episode age 13 Speech-Language Pathology 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 Pt has bedside suction. Subjective Observations Pt up in bedside chair. in her room with her. Evaluation Liquids Trialed Ice Chips Thin Solids Trialed Puree Administration Type Tea Spoon Straw Self-Feeding Oral Impairment WNL Oral Strategies Upright at 90 degrees Oral Phase Comments OM exam was observed to be WFL . Dentition adequate. Diadochokinetic movements and rate WFL. Pt refused solids beyond puree. Pt indicated she ate an omelette for breakfast with minimal to moderate pain. Pharyngeal Impairment WNL Pharyngeal Strategies Sitting Upright (90 deg) Pharyngeal Phase Comments Pt was repositioned in chair to 90 degrees from slight recline. Pt observed to self- administer pills with thin liquids without difficulty. All liquids taken with a straw . Pt swallowed pudding without difficulty. Hyolaryngeal elevation and movement forward was good. Strong cough on cue. Clear voicing following all swallows observed. No cough/choke with swallowing noted. Findings Dysphagia Type No dysphagia Impressions Swallow is WFL. Pt reported that I can swallow; it just hurts Diet Recommendations Liquids Order Thin Medication Recommendations As Tolerated Comments Advnce diet texture as pt is able to tolerate Aspiration Precautions Recommended Precautions Upright at 90 Degrees Treatment Plan Placement Recommendations after Care Home Facility Discharge Appropriate for Therapy No: Swallow is WFL TREATER HELPER Follow Up No
[2018-11-09 13:00] VITALS: BP 132/58; PULSE 93; RESP 18; TEMP 36.8; O2SAT 99
--- NOTE | 2018-11-09 13:06 | OT.IP.TRT ---
Current Diagnoses Other spondylosis with radiculopathy, cervical region (11/05/18) Spinal stenosis, cervical region (11/05/18) Surgery Performed Operation Date: 11/05/18 12:15 Actual Procedures p C4-5,C5-6,C6-7 ACDF w/Anterior Instru. - Frantz Pang MD Occupational Therapy Treatment Note M2 OT-IP Current Condition Start: 11/06/18 11:58 Freq: Status: Active Protocol: Document 11/06/18 08:35 [facility] (Rec: 11/06/18 12:58 [facility] [email or web address]) Occupational Therapy Current Condition Current Condition Evaluation Date 11/06/18 Treatment Diagnosis Cervical Stenosis Diagnosis Onset Date 11/05/18 Post Operative Precautions Cervical Spine Precautions Soft Collar for Comfort No Heavy Lifting Log Roll M3 OT- IP Subjective and Pain Start: 11/06/18 11:58 Freq: Status: Active Protocol: Document 11/09/18 12:53 [facility] (Rec: 11/09/18 13:06 [facility] [email or web address]) OT- Subjective Occupational Therapy Visit Type Type Treatment Note Visit Start Time 11:20 Visit Stop Time 12:00 Total Visit Minutes 40 Occupational Therapy Visit Comments Patient Comments Pt wanting to shower. OT Pain Assessment Pain When Pain Assessed At Rest Pain Present Pain Present Denied Pain M4 OT- IP ADL's Start: 11/06/18 11:58 Freq: Status: Active Protocol: Document 11/09/18 12:53 [facility] (Rec: 11/09/18 13:06 [facility] [email or web address]) OT [id number] Comments OT Self-Feeding Comments Still note occasional coughing after drinking liquids. Continue to encourage pt to make sure that she eats while sitting upright at 90 degrees. OT ADL-Dressing General Eval Upper Body Dressing Ability Independent Lower Body Dressing Ability Contact Guard Assistance Comments OT Dressing Comments CGA while standing to pull up brief over hips for balance, pt able to lauren socks while sitting. OT ADL-Toileting General Evaluation Toileting Ability Independent Devices Toileting Assistive Devices Grab Bars OT ADL-Bathing Bathing Type Bathing Type Shower General Evaluation Bathing Ability Minimal Assistance Areas Needing Assistance Wash/Dry Back Comments OT Bathing Comments Assist to wash/dry back and CGA for balance and heavy use of grab bars while standing to do pericare needs. M5 OT- IP IADL's Start: 11/06/18 11:58 Freq: Status: Active Protocol: Document 11/06/18 08:35 [facility] (Rec: 11/06/18 12:58 [facility] [email or web address]) OT-Instrumental Activities of Daily Living Meal Preparation Meal Preparation Comments to provide assist. Rejogger Rejogger Comments to provide assist. M6 OT- IP Functional Cognition Start: 11/06/18 11:58 Freq: Status: Active Protocol: Document 11/09/18 12:53 [facility] (Rec: 11/09/18 13:06 [facility] [email or web address]) Cognitive Factors Limiting Selfcare Function Cognitive Ability Level of Alertness Alert Patient Orientation Name Place Situation Attention Span Ability Capable of Focused Attention Capable of Sustained Attention Ability to Follow Commands Able to Follow Multi-Step Commands Memory Description No Deficits Noted Safety Awareness Underestimates Need for Assistance Problem Solving Ability Needs Assist to Identify Solutions Cognitive Comments Cognitive Assessment Comments Pt thinking much clearer today but still needing occasional vc for safety. For example to safety sequence to stand form the recliner. M7 OT- IP Mobility and Balance Start: 11/06/18 11:58 Freq: Status: Active Protocol: Document 11/09/18 12:53 [facility] (Rec: 11/09/18 13:06 [facility] [email or web address]) OT- Bed Mobility Assessment Rolling Type of Rolling Roll to Right Supine to Sit Supine to Sit Assist Standby Assistance Scooting Scooting to Edge of Bed Standby Assistance OT-Transfer Assessment Sit to and From Stand Sit to and from Stand Contact Guard Assistance Transfers Transfer Ability Contact Guard Assistance Minimal Assistance Technique Transfer Destination Bed Chair Shower Stall Devices Transfer Assistive Devices None Gait Belt Comments Mobility Comments Attempted for pt to walk into bathroom without device as prior pt did not use device for mobility needs. Pt needing CGA and use of hands to wall, grab bar for steadying and DARLIN while stepping over threshold of shower. Pt still safer to use FWW at thtime time. OT- Balance Assessment Sitting Balance and Reactions Static Sitting Balance Ability Normal Dynamic Sitting Balance Ability Normal Standing Balance and Reactions Static Standing Balance Ability Good Dynamic Standing Balance Ability Fair M8 OT- IP Objective Assessments Start: 11/06/18 11:58 Freq: Status: Active Protocol: Document 11/06/18 08:35 [facility] (Rec: 11/06/18 12:58 [facility] [email or web address]) OT Gross Range of Motion Upper Extremity Range of Motion Assessment Within Functional Limits OT Strength Comments Strength Comments BUE 3+/5 OT Sensation Assessment Comments Summary Comments Decreased sensation in forearms. M9 OT- IP Assessment and Plan Start: 11/06/18 11:58 Freq: Status: Active Protocol: Document 11/09/18 12:53 [facility] (Rec: 11/09/18 13:06 [facility] [email or web address]) OT Summary Assessment and Plan Potential Rehabilitation Potential Good Analytic Complexity at Evaluation Low Summary OT Impairments Balance Functional Mobility Dressing Bathing Progress Towards Goals Progressing Toward Goals Assessment Summary Pt still unsteady on her feet and needing use of device at this time, pt continues to need safety awareness cues for FWW use , coming from sit to stand, and at this time would benefit from short skilled rehab stay. Goals Grooming Goal Independent Dressing Goal Independent Toileting Goal Independent Bathing Goal Standby Assistance Toilet Transfer Goal Independent Shower Transfer Goal Standby Assistance Patient/Caregiver Education Goal Caregiver Independent Assisting Patient Days to Meet Goals 2 Frequency of Treatment Frequency Of Treatment Once a Day Treatment Plan OT Treatment Plan ADL Training Functional Mobility Patient/Family Education Discharge Planning Discharge Recommendations OT Discharge Recommendations SNF Rehab Home Equipment Needs Shower chair, FWW, BSC
--- NOTE | 2018-11-09 14:57 | PC.NURSE ---
Discharge Pt states pain controlled with 2mg PO dilaudid. up with SBA and FWW. Report called to Nataliia at [facility]. pt took all belongings with her. left in w/c with cabulance contract driver around 1415.
--- NOTE | 2018-11-09 15:01 | CM.DPC ---
DCP/continued: Reviewed chart. Per Orthopedics patient okay to d/c to SNF today. Current recommendation is SNF. First choice is [facility]. CHIEF DEPUTY CORONER placed call to [facility] this AM. Spoke with Marge, all clinical was faxed for review on Friday11-07-18. Per Marge at approximately 11:30AM they are unable to accept. Marge reports that they are in the process of new admission procedure and she cannot give this CHIEF DEPUTY CORONER specific reason why they cannot accept. Therefore, met with patient and spouse. Second SNF choice is [facility]. Placed call to [facility] spoke with Nereyda she reports that they do have bed. All clinical faxed. Nereyda returned call from [facility] and they can accept. Patient scheduled to be picked up at approximately 2:00pm. Patient and spouse aware and agreeable. P: [facility] today. LINDSEY Mejia
== END 2018-11-09 14:15 | DRG 473 ==
PROVIDERS: Admitting Provider Orthopaedic Surgery Orthopaedic Surgery of the Spine; PCP Physician Assistant Medical; Visit Provider Orthopaedic Surgery Orthopaedic Surgery of the Spine
PROC: 0RG20A0 Fusion of 2 or more Cervical Vertebral Joints with Interbody Fusion Device, Anterior Approach, Anterior Column, Open Approach (ICD-10-PCS; principal; 2018-11-05 12:15)
DX: M48.02 Spinal stenosis, cervical region (principal); M47.22 Other spondylosis with radiculopathy, cervical region; E03.9 Hypothyroidism, unspecified; E78.5 Hyperlipidemia, unspecified; F32.9 Major depressive disorder, single episode, unspecified; F17.210 Nicotine dependence, cigarettes, uncomplicated; M54.2 Cervicalgia
CPT/HCPCS: 72040; 76000; 85014; 85018; 92610; 97116; 97161; 97165; 97530; 97535; 99406; C1776; J0690; J1100; J1170; J2060; J2704; J3010